=== PATIENT | female | born 1940 | race Two or more races ===

== ENCOUNTER 2018-04-08 23:02 | Inpatient (IN) | payer MEDICARE, OTHER ==
[~2018-04-08] VITALS: Ht 167.6 cm; Wt 81.2 kg
--- NOTE | 2018-04-08 23:04 | NUR ---
PT BIBRA FROM HOME COMPLAINING OF SOB X 1 DAY. PT 94% ON RA, PER RA GAVE 2L NC IMPROVED TO 96%. PT IS AAOX3. NOTED SHALLOW BREATHING AND WHEEZING ON INSPIRATION. SKIN WARM AND INTACT. PT PLACED IN GOWN AND ON CONTINUOUS ALLEY CLEANER.
--- NOTE | 2018-04-08 23:05 | NUR ---
MD AT BEDSIDE FOR EVALUATION
[2018-04-08] MEDS ORDERED: IPRATROPIUM NEB FS 0.5 MG/2.5 ML AMPUL.NEB NEB ONE (23:30)
[2018-04-08] MEDS ORDERED: CEFTRIAXONE 1GM BAG (ER ONLY) 50 ML IV ONE (23:30)
[2018-04-08] MEDS ORDERED: ALBUTEROL FS 2.5 MG/3 ML VIAL.NEB NEB ONE (23:30)
[2018-04-08] MEDS ORDERED: AZITHROMYCIN 250 MG TABLET PO ONE (23:30)
[2018-04-08] MEDS ORDERED: ALBUTEROL FS 2.5 MG/3 ML VIAL.NEB ONE (23:39)
[2018-04-08] MEDS ORDERED: IPRATROPIUM NEB FS 0.5 MG/2.5 ML AMPUL.NEB ONE (23:39)
--- NOTE | 2018-04-08 23:51 | NUR ---
RADIOLOGY AT BEDSIDE FOR CXR
[2018-04-09] VITALS (22 sets, daily range): BP systolic 86–155; BP diastolic 50–108
--- NOTE | 2018-04-09 | NUR ---
ULTRASOUND AT BEDSIDE
[2018-04-09 00:06] LABS: EOSINOPHILS % (AUTO) 0.9 % (0.0-6.0); HEMATOCRIT 31 % (33-45); LYMPHOCYTES % (AUTO) 8.1 % (20.0-44.0); MEAN CORPUSCULAR HGB CONC 32 g/dl (31.0-36.0); MEAN CORPUSCULAR VOLUME 93 fL (82-100); MONOCYTES # (AUTO) 0.5 /CMM (0.1-1.30); MONOCYTES % (AUTO) 3.7 % (2.0-12.0); NEUTROPHILS # (AUTO) 10.6 /CMM (1.8-8.9); NEUTROPHILS % (AUTO) 87.3 % (43.0-81.0); PLATELET COUNT (AUTO) 313 /CMM (150-450); RED BLOOD CELL COUNT(AUTO) 3.38 MIL/uL (4.0-5.2); WHITE BLOOD COUNT (AUTO) 12.1 K/uL (4.3-11.0)
[2018-04-09 00:19] LABS: CALCIUM, SERUM 9.5 mg/dL (8.5-10.1); CARBON DIOXIDE 23 mmol/L (21-32); CHLORIDE 97 mmol/L (98-107); CREATININE 1.6 mg/dL (0.6-1.3); GLUCOSE 133 mg/dL (74-106); POTASSIUM 4.3 mmol/L (3.5-5.1); SODIUM SERUM 131 mmol/L (136-145); UREA NITROGEN, BLOOD 39 mg/dL (7-18)
[2018-04-09] MEDS ORDERED: AZITHROMYCIN 250 MG TABLET ONE (00:20)
[2018-04-09] MEDS ORDERED: CEFTRIAXONE 1 G VIAL ONE (00:20)
[2018-04-09 00:26] LABS: TROPONIN I < 0.017 ng/mL (0.00-0.056)
[2018-04-09 00:31] LABS: ALANINE AMINOTRANSFERASE 24 U/L (12-78); ALBUMIN 2.8 g/dL (3.4-5.0); ALKALINE PHOSPHATASE 94 U/L (46-116); ASPARTATE AMINOTRANSFERASE 41 U/L (15-37); B-TYPE NATRIURETIC PEPTIDE 2077 PG/ML (0-125); BILIRUBIN,DIRECT 0.1 mg/dL (0.0-0.2); BILIRUBIN,TOTAL 0.4 mg/dL (0.2-1.0); TOTAL PROTEIN, SERUM 7.6 g/dL (6.4-8.2)
--- NOTE | 2018-04-09 01:15 | NUR ---
PT TACHYCARDIC, AWARE
[2018-04-09] MEDS ORDERED: DILTIAZEM HCL 25 MG IV IV ONE (01:30)
[2018-04-09] MEDS ORDERED: DILTIAZEM HCL 25 MG IV ONE ×3 (01:31→03:20)
--- NOTE | 2018-04-09 01:51 | NUR ---
PT BROUGHT FOR VQ SCAN
--- NOTE | 2018-04-09 02:56 | NUR ---
PT RETURNED FROM VQ SCAN
--- NOTE | 2018-04-09 03:14 | NUR ---
STEVEN V/Q WAS COMPLETED, TECH:RB
--- NOTE | 2018-04-09 03:21 | NUR ---
RECEIVED 1 VIAL OF CARDIZEM 25MG/5ML FROM [facility]
[2018-04-09] MEDS ORDERED: ENOXAPARIN SODIUM 60 MG/0.6 ML DISP.SYRIN SQ ONE (03:30)
[2018-04-09] MEDS ORDERED: DILTIAZEM HCL IV 125 MG in IV D5W 100 ML IV ONE (03:30)
[2018-04-09] MEDS ORDERED: ENOXAPARIN SODIUM 80 MG/0.8 ML DISP.SYRIN SQ ONE (03:33)
--- NOTE | 2018-04-09 03:49 | NUR ---
PER DR. HYLTON, VERBAL ORDERS TO HOLD CARDIZEM DRIP PER DR. AGUIRRE
[2018-04-09] MEDS ORDERED: AMIODARONE 150 MG/3 ML VIAL IV ONE ×2 (03:56→04:08)
[2018-04-09] MEDS ORDERED: AMIODARONE 150 MG in IV D5W 100 ML IV ONE (04:00)
[2018-04-09] MEDS ORDERED: AMIODARONE 900 MG in IV D5W 500 ML IV ONE (04:00)
--- NOTE | 2018-04-09 04:55 | NUR ---
ICU/RN-ADMITTED THIS 77 Y/O FEMALE FROM ER PER ACLS PROTOCOL. NURSING FOCUS: ALTERED CARDIAC TISSUE PERFUSION R/T DIAGNOSIS NEW ONSET, ATRIAL FIBRILLATION W/ RVR. PT. IS AWAKE, ALERT, NEPALI SPEAKING ONLY. EKG ATRIAL FIB W/ HR-131, bp-86/55. DENIES PAIN OR DISCOMFORT. ON AMIODARONE DRIP AT 1MG/MIN PER PH PROTOCOL. PT. IS A FULL CODE. WILL CONTINUE TO MONITOR CLOSELY PER PROTOCOL.
--- NOTE | 2018-04-09 05:03 | NUR ---
PT TRANSFERRED PER ACLS PROTOCOL
--- NOTE | 2018-04-09 05:30 | NUR ---
ICU/RN- MESSAGE LEFT FOR DR. Wilmar DENISE FOR ADMISSION ORDERS.
--- NOTE | 2018-04-09 06:22 | NUR ---
ICU/RN- NOW PT. EKG SR W/ HR-83. ON CONTINUOUS AMIODARONE DRIP PER PROTOCOL.
[2018-04-09] MEDS ORDERED: MAG HYDROX/AL HYDROX/SIMETH 30 ML UDC PO PRN (06:30)
[2018-04-09] MEDS ORDERED: ZOLPIDEM TARTRATE 5 MG TABLET PO PRN (06:30)
[2018-04-09] MEDS ORDERED: HYDROCODONE/APAP 5/325MG 1 EACH TABLET PO PRN (06:30)
[2018-04-09] MEDS ORDERED: HYDROCODONE/APAP 10/325MG 1 EA TABLET PO PRN (06:30)
[2018-04-09] MEDS ORDERED: MORPHINE SULFATE INJ 4 MG/ML DISP.SYRIN IV PRN (06:30)
[2018-04-09] MEDS ORDERED: ONDANSETRON HCL/PF 4 MG/2 ML VIAL IVP PRN (06:30)
[2018-04-09] MEDS ORDERED: MAGNESIUM HYDROXIDE 30 ML UDC PO PRN (06:30)
[2018-04-09] MEDS ORDERED: ACETAMINOPHEN 325 MG TABLET PO PRN (06:30)
[2018-04-09] MEDS ORDERED: Z GUARD REMEDY 2 OZ OINT TP PRN (06:30)
[2018-04-09] MEDS ORDERED: ESOM40CA PO (07:27)
[2018-04-09] MEDS ORDERED: CLON0.1T PO (07:27)
[2018-04-09] MEDS ORDERED: FEBU40TA PO (07:27)
[2018-04-09] MEDS ORDERED: POTA8TAB3 PO (07:27)
[2018-04-09] MEDS ORDERED: OLME20TA13 PO (07:27)
[2018-04-09] MEDS ORDERED: ALLO300T2 PO (07:27)
[2018-04-09] MEDS ORDERED: PARI1CAP3 PO (07:27)
[2018-04-09] MEDS ORDERED: FURO20TA4 PO (07:27)
[2018-04-09] MEDS ORDERED: DILT240C53 PO (07:27)
[2018-04-09] MEDS ORDERED: ALPR0.255 PO (07:27)
[2018-04-09] MEDS ORDERED: DIGO125T PO (07:27)
[2018-04-09] MEDS ORDERED: COLC0.6T67 PO (07:27)
[2018-04-09] MEDS ORDERED: AMIODARONE 900 MG in IV D5W 482 ML IV PRN (07:30)
--- NOTE | 2018-04-09 07:30 | NUR ---
USED CAR RENOVATOR NOTE: RECEIVED PATIENT IN BED, AWAKE, ALERT AND VERBALLY RESPONSIVE. RESPIRATION EVEN AND UNLABORED ON O2 2L/MIN VIA NC SATURATING 96-97%. DENIED ANY PAIN. HOB ELEVATED. BED ALARMED AND LOCKED AT ALL TIMES. BED ON LOWEST POSITION. (L) AND (R) WRIST IV LINE NOTED PATENT AND INTACT. AMIODARONE 1MG/MIN IV PER PROTOCOL INFUSING ON THE (L) WRIST. CALL LIGHT WITHIN REACH. NEEDS ANTICIPATED.
--- NOTE | 2018-04-09 07:30 | NUR ---
WEB PRESS OPERATOR HELPER OFFSET NOTE: RECEIVED PATIENT IN BED, AWAKE, ALERT AND ABLE TO EXPRESSED HIS NEEDS AND CAN MOUTH WORDS. VENT-TRACH DEPENDENT SATURATING 100%. HOB ELEVATED. CONTACT ISOLATION FOR MRSA WOUND. ON GT FEEDING OF JEVITY 1.2 @ 70ML/HR AND TOLERATING IT. NO RESIDUAL. (R) UA PICC LINE NOTED WITH 3 LUMENS AND INFUSING NS + KCL 40MEQ IV @ 75ML/HR. ON KCI MATTRESS, TURNED AND REPOSITIONED Q2HR. BED ALARMED AND LOCKED AT ALL TIMES. CALL LIGHT WITHIN REACH. NEEDS ANTICIPATED. Addendum: 04/09/18 at 2055 by KAROL LESTER RN ERROR WRONG PATIENT
[2018-04-09] MEDS: LEVOFLOXACIN 750 MG /D5W 150ML 750 MG in PREMIX 1 EA IV SCH (08:32)
[2018-04-09] MEDS ORDERED: ENOXAPARIN SODIUM 40 MG/0.4 ML DISP.SYRIN SQ SCH (09:00)
--- NOTE | 2018-04-09 10:00 | NUR ---
OCCUPATIONAL THERAPY AIDE NOTE: PATIENT STARTED FEELING ANXIOUS AND SHE VERBALIZED "I AM FEELING NERVOUS." PATIENT'S NIECE WAS PRESENT AT THE BEDSIDE. PRIMARY NURSE WAS PACIFYING THE PATIENT. PAGED ASH WILD NP RE: THE PATIENT'S ANXIETY ATTACK. BP WAS ELEVATED IN THE 150'S-180'S. AWAITING FOR RESPONSE.
--- NOTE | 2018-04-09 10:15 | NUR ---
TANK TRUCK DRIVER NOTE: PAGED DR. AGUIRRE WAS ALSO INFORMED ABOUT THE PATIENT'S CONDITION. AWAITING FOR MD'S RESPONSE. NIECE AND PRIMARY NURSE REMAINED WITH THE PATIENT.
--- NOTE | 2018-04-09 10:25 | NUR ---
DATA CONVERSION OPERATOR NOTE: RECEIVED A MESSAGE FROM DR. AGUIRRE AND ASH WILD CHAUFFEUR PRESENT AT THE BEDSIDE AT THIS TIME. PER DR. AGUIRRE, HE ORDERED A XANAX AND HYDRALAZINE FOR THE PATIENT. PER PATIENT'S DAUGHTER, ROMIE SHE DOES NOT WANT THE PATIENT TO TAKE THE XANAX AND MORPHINE. THE PATIENT'S BP WAS RECHECKED AND IT WENT DOWN TO 140/75 HR= 81. DR. AGUIRRE WAS MADE AWARE ABOUT THE DAUGHTER'S REQUEST. SO NO MEDICATION WAS ADMINISTERED TO THE PATIENT. PATIENT REMAINED CALM AND QUIET WITH HER NIECE AT THE BEDSIDE.
[2018-04-09] MEDS ORDERED: IV D5/ 0.9% NACL 1,000 ML IV PRN (10:30)
[2018-04-09 11:10] LABS: EOSINOPHILS % (AUTO) 0.5 % (0.0-6.0); HEMATOCRIT 30 % (33-45); HEMOGLOBIN 9.7 g/dL (11.5-14.8); LYMPHOCYTES # (AUTO) 1.1 /CMM (0.8-4.8); LYMPHOCYTES % (AUTO) 8.2 % (20.0-44.0); MEAN CORPUSCULAR HGB CONC 32 g/dl (31.0-36.0); MEAN CORPUSCULAR VOLUME 93 fL (82-100); MONOCYTES # (AUTO) 1.3 /CMM (0.1-1.30); MONOCYTES % (AUTO) 9.8 % (2.0-12.0); NEUTROPHILS # (AUTO) 11.1 /CMM (1.8-8.9); NEUTROPHILS % (AUTO) 81.5 % (43.0-81.0); PLATELET COUNT (AUTO) 344 /CMM (150-450); RDW COEFFICIENT OF VARIATION 14.8 (11.5-15.0); RED BLOOD CELL COUNT(AUTO) 3.23 MIL/uL (4.0-5.2); WHITE BLOOD COUNT (AUTO) 13.7 K/uL (4.3-11.0)
[2018-04-09 11:17] LABS: ALANINE AMINOTRANSFERASE 25 U/L (12-78); ALBUMIN 2.4 g/dL (3.4-5.0); ALKALINE PHOSPHATASE 91 U/L (46-116); ASPARTATE AMINOTRANSFERASE 32 U/L (15-37); BILIRUBIN,TOTAL 0.4 mg/dL (0.2-1.0); CALCIUM, SERUM 9.1 mg/dL (8.5-10.1); CARBON DIOXIDE 23 mmol/L (21-32); CHLORIDE 100 mmol/L (98-107); CREATININE 1.4 mg/dL (0.6-1.3); GLUCOSE 157 mg/dL (74-106); POTASSIUM 3.8 mmol/L (3.5-5.1); SODIUM SERUM 132 mmol/L (136-145); TOTAL PROTEIN, SERUM 6.8 g/dL (6.4-8.2); UREA NITROGEN, BLOOD 30 mg/dL (7-18)
--- NOTE | 2018-04-09 12:14 | NUR ---
INSURANCE SALES EXECUTIVE NOTE: DR. AGUIRRE WAS PRESENT AT THE BEDSIDE. INTERVIEWED THE PATIENT AND HE SAID THAT HE WILL DC THE IV FLUID AND ORDERED LASIX AND A STAT CHEST X-RAY WILL BE DONE. THE CT CHEST WITHOUT CONTRAST PER MD WILL BE DONE IN 2 HR. PATIENT AND NIECE AT THE BEDSIDE WAS AWARE AND AGREEABLE TO THE PLAN.
[2018-04-09] MEDS ORDERED: FUROSEMIDE 20 MG/2 ML VIAL IV ONE (12:30)
[2018-04-09] MEDS: DILTIAZEM HCL CD 120 MG PO SCH (13:26)
[2018-04-09] MEDS ORDERED: LEVALBUTEROL HCL NEB 1.25 MG/0.5 ML VIAL.NEB NEB ONE (13:30)
--- NOTE | 2018-04-09 15:00 | NUR ---
HOSPITAL CLERK NOTE: PATIENT WAS BROUGHT TO CT SCAN ACCOMPANIED BY THE PRIMARY NURSE AND 2 RADIOLOGY TECHNICIANS VIA BED WITH MONITOR AND O2 2L/MIN VIA NC. REMAINED ON STABLE CONDITION.
--- NOTE | 2018-04-09 15:23 | NUR ---
PARACHUTE SUPERVISOR NOTE: PATIENT WAS BROUGHT BACK TO ROOM 256 ON STABLE CONDITION. REMAINED ON O2 2L/MIN VIA NC SATURATING 95%. NOT ON ANY FORM OF DISTRESS. CONNECTED BACK TO THE BEDSIDE MONITOR.
--- NOTE | 2018-04-09 19:30 | NUR ---
APPLICATIONS PROJECT MANAGER NOTE: PATIENT ON STABLE CONDITION. REPORT GIVEN TO PM SHIFT NURSE FOR CONTINUITY OF CARE. PATIENT WAS ABLE TO SEAT ON THE BEDSIDE COMMODE AND WAS ALERT TO CONTROL HER BLADDER AND BOWEL. PATIENT REMAINED ON AMIODARONE 0.5MG/MIN IV PER PROTOCOL.
--- NOTE | 2018-04-09 19:30 | NUR ---
WARP KNITTING MACHINE OPERATOR INITIAL NOTE RECEIVED PATIENT AWAKE A/OX3, ABLE TO MAKE NEEDS KNOWN. DENIES PAIN OR DISCOMFORT. ASSISTED TO BEDSIDE COMMODE, WITH SOB ON EXERTION NOTED, SPO2 100% ON 2LPMO2 VIA NC. SKIN WARM AND DRY TO TOUCH. ON TELE MONITOR SR 83. WITH RW PERIPHERAL LINE PATENT AND INTACT WITH AMIO GTT AT 0.5MG/MIN. NOTED WITH BLE NON-PITTING EDEMA. HOB ELEVATED. SIDE RAILS UP AND LOCKED. BED KEPT AT LOWEST POSITION. CALL LIGHT KEPT WITHIN EASY REACH. WILL CONTINUE TO MONITOR.
[2018-04-09] MEDS: ENOXAPARIN SODIUM 80 MG/0.8 ML DISP.SYRIN SQ SCH (20:45)
--- NOTE | 2018-04-09 23:15 | NUR ---
CONCRETE BATCHING PLANT OPERATOR NOTE DAUGHTER AT BEDSIDE, GAVE UPDATES ON HER MOTHER.
[2018-04-10] VITALS (32 sets, daily range): BP systolic 92–187; BP diastolic 48–131
--- NOTE | 2018-04-10 03:45 | NUR ---
KILN HAND NOTE 0345: PATIENT CONVERTED TO AFIB 130'S-150'S, NO C/O PAIN OR DISCOMFORT. ON AMIO GTT AT 0.5MG/MIN. BP 150/103. NO SOB NOTED. 0404: JUAN PABLO DARBY PAGED 0420: JUAN PABLO DARBY REPAGED [phone]: RECEIVED CALL BACK FROM JUAN PABLO DARBY WITH NEW ORDERS RECEIVED CARDIZEM 10 IVP ONE TIME. NOTED AND WILL CARRY OUT.
[2018-04-10] MEDS ORDERED: DILTIAZEM HCL 50 MG IV IVP ONE (05:00)
[2018-04-10] MEDS ORDERED: DILTIAZEM HCL 25 MG IV ONE (05:07)
[2018-04-10 05:15] LABS: EOSINOPHILS % (AUTO) 1.1 % (0.0-6.0); HEMATOCRIT 31 % (33-45); HEMOGLOBIN 10.1 g/dL (11.5-14.8); LYMPHOCYTES # (AUTO) 1.3 /CMM (0.8-4.8); LYMPHOCYTES % (AUTO) 12.2 % (20.0-44.0); MEAN CORPUSCULAR HGB CONC 32 g/dl (31.0-36.0); MEAN CORPUSCULAR VOLUME 93 fL (82-100); MONOCYTES # (AUTO) 0.9 /CMM (0.1-1.30); MONOCYTES % (AUTO) 8.1 % (2.0-12.0); NEUTROPHILS # (AUTO) 8.7 /CMM (1.8-8.9); NEUTROPHILS % (AUTO) 78.6 % (43.0-81.0); PLATELET COUNT (AUTO) 371 /CMM (150-450); RDW COEFFICIENT OF VARIATION 14.9 (11.5-15.0); RED BLOOD CELL COUNT(AUTO) 3.37 MIL/uL (4.0-5.2); WHITE BLOOD COUNT (AUTO) 11.1 K/uL (4.3-11.0)
[2018-04-10 05:41] LABS: CALCIUM, SERUM 9.3 mg/dL (8.5-10.1); CARBON DIOXIDE 25 mmol/L (21-32); CHLORIDE 99 mmol/L (98-107); CREATININE 1.4 mg/dL (0.6-1.3); GLUCOSE 116 mg/dL (74-106); MAGNESIUM 1.5 mg/dL (1.8-2.4); PHOSPHORUS 3.5 mg/dL (2.5-4.9); POTASSIUM 3.8 mmol/L (3.5-5.1); SODIUM SERUM 135 mmol/L (136-145); UREA NITROGEN, BLOOD 27 mg/dL (7-18)
[2018-04-10 05:43] LABS: CHOLESTEROL 118 mg/dL (<200); HDL CHOLESTEROL 44 mg/dL (40-60); LDL 58 mg/dL (0-99); THYROID STIMULATING HORMONE 2.195 uIU/mL (0.358-3.74); TRIGLYCERIDES 94 mg/dL (30-150)
--- NOTE | 2018-04-10 07:22 | NUR ---
DISH NETWORK INSTALLER NOTE RELAYED TO DR. AGUIRRE REGARDING PATIENT CONVERTED TO AFIB 130-150 AT 0345, PATIENT S/P AMIO GTT 0430 THIS MORNING AND CARDIZEM 10MG IVP GIVEN ONCE, WITH NO CHANGE. PATIENT NO C/O PAIN. BP 154/65. WITH ORDERS TO RESTART AMIO DRIP WITH A BOLUS, AND INCREASE MORNING CARDIZEM TO 240MG PO DAILY INSTEAD OF 120 AND GIVE TO HER NOW. NOTED. INFORMED AM NURSE.
--- NOTE | 2018-04-10 07:43 | NUR ---
WIRE LOOP MACHINE OPERATOR CSLOING NOTE ALL DUE MEDS GIVEN. SLEPT WELL THROUGH THE NIGHT. ALL DUE MEDS GIVEN. NO RESPIRATORY DISTRESS NOTED, ON 2LPMO2 VIA NC. ASSISTED TO BEDSIDE COMMODE NEEDED. KEPT CLEAN AND DRY. AFIB ON MONITOR. SIDE RAILS UP AND LOCKED. BED KEPT AT LOWEST POSITION. CALL LIGHT KEPT WITHIN EASY REACH. CONTINUITY OF CARE ENDORSED TO AM NURSE.
[2018-04-10] MEDS ORDERED: AMIODARONE 150 MG in IV D5W 100 ML IV ONE (08:00)
[2018-04-10] MEDS: LEVOFLOXACIN 750 MG /D5W 150ML 750 MG in PREMIX 1 EA IV SCH (08:05)
[2018-04-10] MEDS: ENOXAPARIN SODIUM 80 MG/0.8 ML DISP.SYRIN SQ SCH (08:06)
[2018-04-10] MEDS ORDERED: DILTIAZEM HCL CD 240 MG PO SCH ×2 (08:30→09:00)
[2018-04-10] MEDS: AMIODARONE 900 MG in IV D5W 482 ML IV PRN (09:12)
[2018-04-10] MEDS: Magnesium 1GM/D5W 100ML PREMIX 100 ML IV SCH ×3 (09:47→12:25)
[2018-04-10] MEDS: FUROSEMIDE 40 MG/4 ML VIAL IV SCH ×2 (09:48→17:32)
[2018-04-10] MEDS ORDERED: DILTIAZEM HCL 25 MG IV IV ONE ×2 (10:00→11:30)
[2018-04-10] MEDS: ACETYLCYSTEINE 10% SOLN 400 MG/4 ML VIAL NEB SCH ×3 (10:00→23:23)
[2018-04-10] MEDS ORDERED: POTASSIUM CHLORIDE 20 MEQ POWDER PACKET PO ONE (10:00)
[2018-04-10] MEDS: IPRATROPIUM NEB FS 0.5 MG/2.5 ML AMPUL.NEB NEB SCH ×3 (10:00→20:01)
[2018-04-10] MEDS ORDERED: DILTIAZEM HCL CD 240 MG PO ONE (11:30)
[2018-04-10] MEDS: DILTIAZEM HCL CD 120 MG PO SCH (11:54)
[2018-04-10] MEDS ORDERED: DILTIAZEM HCL CD 120 MG PO ONE (12:00)
--- NOTE | 2018-04-10 12:37 | NUR ---
Given cardizem 120mg PO as ordered at 1154. Theres a duplicate order on AUG due at 1200,
[2018-04-10] MEDS: RIVAROXABAN 15 MG TABLET PO SCH (17:33)
[2018-04-10] MEDS ORDERED: FEE PK DOSING 1 MIN EA MC ONE (17:35)
[2018-04-10] MEDS: VANCOMYCIN 500 MG in IV D5W 100 ML IV SCH (18:37)
--- NOTE | 2018-04-10 19:30 | NUR ---
SEED CORN MANAGER PRODUCTION INITIAL NOTE RECEIVED PATIENT AWAKE A/OX3, ABLE TO MAKE NEEDS KNOWN. DAUGHTER AT BEDSIDE. DENIES PAIN OR DISCOMFORT. NO RESPIRATORY DISTRESS NOTED, ON 2LPMO2 VIA NC. SKIN WARM AND DRY TO TOUCH. ON TELE MONITOR AFIB UNCONTROLLED. WITH RFA PERIPHERAL LINE PATENT AND INTACT WITH AMIO GTT AT 0.5MG/MIN. NOTED WITH BLE NON-PITTING EDEMA. HOB ELEVATED. SIDE RAILS UP AND LOCKED. BED KEPT AT LOWEST POSITION. CALL LIGHT KEPT WITHIN EASY REACH. WILL CONTINUE TO MONITOR.
[2018-04-10] MEDS: CEFEPIME 1 GM in IV D5W 50 ML IV SCH (22:02)
[2018-04-11] VITALS (24 sets, daily range): BP systolic 111–178; BP diastolic 44–101
[2018-04-11] MEDS: IPRATROPIUM NEB FS 0.5 MG/2.5 ML AMPUL.NEB NEB SCH ×4 (01:06→19:37)
[2018-04-11 04:59] LABS: BASOPHILS # (AUTO) 0.1 /CMM (0.0-0.2); BASOPHILS % (AUTO) 0.4 % (0.0-2.0); EOSINOPHILS % (AUTO) 0.6 % (0.0-6.0); HEMATOCRIT 35 % (33-45); HEMOGLOBIN 11.1 g/dL (11.5-14.8); LYMPHOCYTES # (AUTO) 1.5 /CMM (0.8-4.8); LYMPHOCYTES % (AUTO) 12.5 % (20.0-44.0); MEAN CORPUSCULAR HGB CONC 32 g/dl (31.0-36.0); MEAN CORPUSCULAR VOLUME 93 fL (82-100); MONOCYTES # (AUTO) 1.1 /CMM (0.1-1.30); MONOCYTES % (AUTO) 8.9 % (2.0-12.0); NEUTROPHILS # (AUTO) 9.3 /CMM (1.8-8.9); NEUTROPHILS % (AUTO) 77.6 % (43.0-81.0); PLATELET COUNT (AUTO) 424 /CMM (150-450); RDW COEFFICIENT OF VARIATION 14.4 (11.5-15.0); RED BLOOD CELL COUNT(AUTO) 3.73 MIL/uL (4.0-5.2); WHITE BLOOD COUNT (AUTO) 11.9 K/uL (4.3-11.0)
[2018-04-11 05:32] LABS: CALCIUM, SERUM 9.7 mg/dL (8.5-10.1); CARBON DIOXIDE 30 mmol/L (21-32); CHLORIDE 98 mmol/L (98-107); CREATININE 1.5 mg/dL (0.6-1.3); GLUCOSE 131 mg/dL (74-106); MAGNESIUM 1.9 mg/dL (1.8-2.4); PHOSPHORUS 3.5 mg/dL (2.5-4.9); POTASSIUM 3.4 mmol/L (3.5-5.1); SODIUM SERUM 138 mmol/L (136-145); UREA NITROGEN, BLOOD 27 mg/dL (7-18)
[2018-04-11] MEDS: VANCOMYCIN 500 MG in IV D5W 100 ML IV SCH ×2 (05:42→17:26)
--- NOTE | 2018-04-11 07:30 | NUR ---
COPY MANAGER CLOSING NOTE ALL DUE MEDS GIVEN. NO RESPIRATORY DISTRESS NOTED, ON 2LPMO2 VIA NC. ASSISTED TO BED HUNT NEEDED. KEPT CLEAN AND DRY. AFIB UNCONTROLLED ON MONITOR. AMIO GTT RUNNING AT 0.5 MG/MIN. SIDE RAILS UP AND LOCKED. BED KEPT AT LOWEST POSITION. CALL LIGHT KEPT WITHIN EASY REACH. CONTINUITY OF CARE ENDORSED TO AM NURSE.
--- NOTE | 2018-04-11 07:30 | NUR ---
LUMBER TALLIER AM NOTES RECEIVED PATIENT AWAKE A/OX3, NEPALI SPEAKING, ABLE TO MAKE NEEDS KNOWN. C/O STIFFNESS/PAIN TO BOTH LOWER LEGS 10/02, REFUSE PAIN MEDS, NO RESPIRATORY DISTRESS NOTED, ON 2LPMO2 VIA NC. AFIB UNCONTROLLED UNCONTROLLED HR 140S-150S ON MONITOR. RFA G20 PERIPHERAL LINE PATENT AND INTACT WITH AMIO GTT AT 0.5MG/MIN. RT WRIST G20 FLUSHES WELL, BOTH SITES CLEAR, NOTED WITH BLE NON-PITTING EDEMA. HOB ELEVATED. SIDE RAILS UP AND LOCKED. BED KEPT AT LOWEST POSITION. CALL LIGHT KEPT WITHIN EASY REACH. WILL CONTINUE TO MONITOR.
[2018-04-11] MEDS: ACETYLCYSTEINE 10% SOLN 400 MG/4 ML VIAL NEB SCH ×2 (07:34→15:30)
[2018-04-11] MEDS ORDERED: LEVOFLOXACIN 750 MG /D5W 150ML 750 MG in PREMIX 1 EA IV SCH (08:00)
[2018-04-11] MEDS ORDERED: POTASSIUM CHLORIDE 20 MEQ POWDER PACKET PO ONE (09:00)
[2018-04-11] MEDS ORDERED: DILTIAZEM HCL CD 240 MG PO SCH (09:00)
[2018-04-11] MEDS: DILTIAZEM HCL CD 180 MG PO SCH (09:02)
[2018-04-11] MEDS: CEFEPIME 1 GM in IV D5W 50 ML IV SCH ×2 (09:03→21:00)
[2018-04-11] MEDS: AMIODARONE 900 MG in IV D5W 482 ML IV PRN (09:04)
--- NOTE | 2018-04-11 09:30 | NUR ---
WEAVING MACHINE OPERATOR NOTE PER DR. AGUIRRE, WILL CONTINUE AMIO DRIP FOR ANOTHER 24 HOURS. PT ALSO HAS PO CARDIZEM. DUE MEDS GIVEN
[2018-04-11] MEDS: FUROSEMIDE 40 MG TABLET PO SCH (10:54)
[2018-04-11] MEDS: COLCHICINE 0.6 MG TABLET PO SCH (12:15)
--- NOTE | 2018-04-11 13:01 | NUR ---
PT REFUSED RESP TX AT THIS TIME. NO S/S OF SOB NOTED. WILL CONT TO MONITOR Addendum: 04/11/18 at 1303 by SHAYLA CHRISTIANSEN RT Amended: Links added.
[2018-04-11] MEDS: RIVAROXABAN 15 MG TABLET PO SCH (17:26)
[2018-04-11] MEDS: FLUTICASONE PROPIONATE 16 GM BOTTLE NS SCH (18:30)
--- NOTE | 2018-04-11 18:32 | NUR ---
DIRECTOR REGULATORY COMPLIANCE CLOSING NOTES PATIENT RESTING IN BED, FAMILY AT BEDSIDE. AWAKE A/OX3, BELARUSIAN SPEAKING, ABLE TO MAKE NEEDS KNOWN. C/O STIFFNESS/PAIN TO BOTH LOWER LEGS 10/02, FAMILY REFUSE PAIN MEDS, NO RESPIRATORY DISTRESS NOTED, ON 2LPMO2 VIA NC. SR HR 80S - 90S. DENIES CHEST DISCOMFORT. RFA G20 PERIPHERAL LINE PATENT AND INTACT WITH AMIO GTT AT 0.5MG/MIN. LEFT FA G22 FLUSHES WELL, BOTH SITES CLEAR, NOTED WITH BLE NON-PITTING EDEMA. HOB ELEVATED. SIDE RAILS UP AND LOCKED. BED KEPT AT LOWEST POSITION. CALL LIGHT KEPT WITHIN EASY REACH. ALL NEEDS MET AT THIS TIME. WILL ENDORSE TO NEXT SHIFT FOR GENA.
--- NOTE | 2018-04-11 20:00 | NUR ---
Received patient awake alert and oriented x 3.Dany speaking with family at bedside as registered dental hygienist.VS stable.O2 2L NC on denies chest pain or sob.SR per monitor with Amiodarone gtt infusing at 0.5 mg/min to RFA site intact.Turned and repositioned.Patient complaints of pain to right leg when moved.Offers pain medication but family refused.Bilateral LE edema noted and kept elevated on pillows.Safety precaution maintained with call light within reach.Bed low and bed exit alarm on.Continue monitoring.
[2018-04-12] VITALS (24 sets, daily range): BP systolic 125–162; BP diastolic 50–114
--- NOTE | 2018-04-12 | NUR ---
Patient verbalized she is hungry offered snack.Voiding well per bedpan .Kept clean and dry.Turned and repositioned.
[2018-04-12] MEDS: ACETYLCYSTEINE 10% SOLN 400 MG/4 ML VIAL NEB SCH ×3 (00:32→15:14)
[2018-04-12] MEDS: IPRATROPIUM NEB FS 0.5 MG/2.5 ML AMPUL.NEB NEB SCH ×4 (00:32→19:44)
--- NOTE | 2018-04-12 04:00 | NUR ---
Patient awake.Bed bath rendered and complete linens changed.Turned and repositioned. Patient verbalized comfort.VS remains stable.
[2018-04-12 05:34] LABS: BASOPHILS % (AUTO) 0.3 % (0.0-2.0); EOSINOPHILS % (AUTO) 0.2 % (0.0-6.0); HEMATOCRIT 32 % (33-45); HEMOGLOBIN 10.3 g/dL (11.5-14.8); LYMPHOCYTES % (AUTO) 8.5 % (20.0-44.0); MEAN CORPUSCULAR HGB CONC 33 g/dl (31.0-36.0); MEAN CORPUSCULAR VOLUME 92 fL (82-100); MONOCYTES % (AUTO) 8.7 % (2.0-12.0); NEUTROPHILS # (AUTO) 9.3 /CMM (1.8-8.9); NEUTROPHILS % (AUTO) 82.3 % (43.0-81.0); PLATELET COUNT (AUTO) 407 /CMM (150-450); RED BLOOD CELL COUNT(AUTO) 3.44 MIL/uL (4.0-5.2); WHITE BLOOD COUNT (AUTO) 11.3 K/uL (4.3-11.0)
[2018-04-12 05:45] LABS: CALCIUM, SERUM 8.8 mg/dL (8.5-10.1); CARBON DIOXIDE 29 mmol/L (21-32); CHLORIDE 98 mmol/L (98-107); CREATININE 1.2 mg/dL (0.6-1.3); GLUCOSE 138 mg/dL (74-106); MAGNESIUM 1.6 mg/dL (1.8-2.4); POTASSIUM 3.6 mmol/L (3.5-5.1); SODIUM SERUM 135 mmol/L (136-145); UREA NITROGEN, BLOOD 19 mg/dL (7-18)
--- NOTE | 2018-04-12 07:10 | NUR ---
RN INITIAL NOTES RECEIVED PT AWAKE, A/OX3. ON 02 AT 2LPM VIA NC. NO RESPIRATORY DISTRESS NOTED. NO SOB NOTED. DENIES ANY PAIN. ON AMIO DRIP AT 0.5MG/MIN. PT SINUS RHYTHM ON MONITOR, 70S. IV LINES IN PLACE. PT COMFORTABLE. PT CLEAN AND DRY. CALL LIGHT WITHIN REACH.
--- NOTE | 2018-04-12 08:07 | NUR ---
PT REFUSED RESP TX AT THIS TIME. NO S/S OF SOB NOTED. WILL CONT TO MONITOR Addendum: 04/12/18 at 0808 by SHAYLA CHRISTIANSEN RT Amended: Links added.
[2018-04-12] MEDS: FLUTICASONE PROPIONATE 16 GM BOTTLE NS SCH ×2 (08:28→16:36)
[2018-04-12] MEDS: CEFEPIME 1 GM in IV D5W 50 ML IV SCH ×2 (08:28→20:45)
[2018-04-12] MEDS: FUROSEMIDE 40 MG TABLET PO SCH (08:28)
[2018-04-12] MEDS: COLCHICINE 0.6 MG TABLET PO SCH (08:28)
[2018-04-12] MEDS: DILTIAZEM HCL CD 180 MG PO SCH (08:29)
[2018-04-12] MEDS ORDERED: POTASSIUM CHLORIDE 20 MEQ POWDER PACKET PO ONE (09:00)
[2018-04-12] MEDS: Magnesium 1GM/D5W 100ML PREMIX 100 ML IV SCH ×2 (09:12→10:16)
[2018-04-12] MEDS: AMIODARONE HCL 200 MG TABLET PO SCH ×2 (09:45→20:41)
--- NOTE | 2018-04-12 09:45 | NUR ---
RN NOTES SEEN AND EXAMINED BY DR AGUIRRE. AWARE OF CURRENT LAB VALUES NAD CXR RESULT. SHAYY MAXWELL DC'D AND CHANGED TO PO. SINUS RHYTHM ON THE MONITOR. OK TO DOWNGRADE. WILL MONITOR
--- NOTE | 2018-04-12 13:30 | NUR ---
RN NOTES SEEN AND EXAMINED BY HOWARD WALLS NP. AWARE OF LAB VALUES: WBC 11.3, HGB 10.3, HCT 32, PLATELET 407. POTASSIUM 3.6, REPLACED WITH KCL 40MEQ, MAGNESIUM 1.6, REPLACED WITH 2GMS. ALSO AWARE OF LATEST CXR RESULT. ORDERED CAROTID DULEX, MRI WO CONTRAST CSPINE AND LSPINE. WILL CLOSELY MONITOR
--- NOTE | 2018-04-12 14:27 | NUR ---
TEXTED DR. MILLER FOR MRI APPROVAL AT 12.58 PM. NOT APPROVED YET.
[2018-04-12] MEDS: RIVAROXABAN 15 MG TABLET PO SCH (16:37)
--- NOTE | 2018-04-12 17:45 | NUR ---
TELE/RN NOTE PATIENT IS ALERT AND ORIENTED X3. DENIES SOB. RESPIRATION REGULAR AND UNLABORED. DENIES PAIN. PATIENT ON TELE BOX AND READING SR. PATIENT IN STABLE CONDITION. BED LOW AND LOCKED. SIDE RAILS UP X3. CALL LIGHT WITHIN REACH. WILL CONTINUE TO MONITOR.
--- NOTE | 2018-04-12 17:50 | NUR ---
RN NOTES PT TRANSFERRED TO ROOM 106. PT REMAINS A/0X3. NO RESPIRATORY DISTRESS NOTED. NO SOB NOTED. DENIES ANY PAIN. HOB ELEVATED. PT COMFORTABLE. TRANSFERRED IN STABLE CONDITION. ROXANNA FITZGERALD TOOK OVER PT'S CARE.
--- NOTE | 2018-04-12 19:30 | NUR ---
FIELD COIL WINDER NOTES: RECEIVED PT ON BED ALERT AND AWAKE, FARSI SPEAKING. FAMILY AT BEDSIDE. NO ACUTE DISTRESS NOTED. NO COMPLAINTS OF PAIN OR DISCOMFORT AT THIS TIME. NO SOB NOTED. ON TELE MONITOR HR 81BPM. KEPT CLEAN, DRY AND COMFORTABLE. CALL LIGHT PLACED WITHIN REACH. SAFETY AND FALL PRECAUTIONS OBSERVED AND MAINTAINED. WILL CONTINUE TO MONITOR PT.
[2018-04-13] VITALS (7 sets, daily range): BP systolic 130–154; BP diastolic 52–69
[2018-04-13] MEDS: ACETYLCYSTEINE 10% SOLN 400 MG/4 ML VIAL NEB SCH ×4 (00:43→23:30)
[2018-04-13] MEDS: IPRATROPIUM NEB FS 0.5 MG/2.5 ML AMPUL.NEB NEB SCH ×5 (00:43→20:46)
--- NOTE | 2018-04-13 06:27 | NUR ---
OCCUPATIONAL HEALTH AND SAFETY MANAGER NOTES: NO CHANGES NOTED THROUGHOUT THE SHIFT. NO ACUTE DISTRESS NOTED. DENIES PAIN AND DISCOMFORT AT THIS TIME. ON 2LPM NASAL CANNULA, NO SOB NOTED. SINUS RHYTHM ON TELE MONITOR HR 73BPM. ALL DUE MEDS GIVEN ORDERED, WELL TOLERATED. CALL LIGHT PLACED WITHIN REACH. KEPT CLEAN, DRY AND COMFORTABLE. SIDE RAILS UP X3. BED ALARM ON. BED LOCKED AND IN LOWEST POSITION. WILL ENDORSE TO DAY SHIFT RN FOR CONTINUITY OF CARE.
[2018-04-13 07:24] LABS: CALCIUM, SERUM 8.7 mg/dL (8.5-10.1); CARBON DIOXIDE 29 mmol/L (21-32); CHLORIDE 99 mmol/L (98-107); CREATININE 1.4 mg/dL (0.6-1.3); GLUCOSE 93 mg/dL (74-106); POTASSIUM 3.4 mmol/L (3.5-5.1); SODIUM SERUM 139 mmol/L (136-145); UREA NITROGEN, BLOOD 26 mg/dL (7-18)
--- NOTE | 2018-04-13 08:40 | NUR ---
PAUL HOLLINGSWORTH TEXTED ,ON HOLD FOR NOW ,HE WILL LET US KNOW.
--- NOTE | 2018-04-13 08:42 | NUR ---
MRI ON HOLD FOR NOW, DR. MILLER WILL LET US KNOW.
[2018-04-13] MEDS: FUROSEMIDE 40 MG TABLET PO SCH (08:44)
[2018-04-13] MEDS: COLCHICINE 0.6 MG TABLET PO SCH (08:44)
[2018-04-13] MEDS: DILTIAZEM HCL CD 180 MG PO SCH (08:44)
[2018-04-13] MEDS: AMIODARONE HCL 200 MG TABLET PO SCH ×2 (08:44→21:02)
--- NOTE | 2018-04-13 08:45 | NUR ---
PRESS WASHER INITIAL NOTES Patient is sitting up in bed, awake, had breakfast with good appetite. Tele monitor showing AFIB HR130's, patient denies any pain, no c/o N/V, denies headache. JUAN PABLO Miller informed, Ekg done. Dr. Julian will see the patient. Maintain safety precaution.
[2018-04-13] MEDS: FLUTICASONE PROPIONATE 16 GM BOTTLE NS SCH ×2 (08:49→16:51)
[2018-04-13] MEDS ORDERED: POTASSIUM CHLORIDE 20 MEQ TAB.PRT.SR PO SCH (09:00)
[2018-04-13] MEDS ORDERED: AMIODARONE 150 MG in IV D5W 100 ML IV ONE (10:00)
[2018-04-13] MEDS ORDERED: POTASSIUM CHLORIDE 20 MEQ TAB.PRT.SR PO ONE (10:00)
[2018-04-13] MEDS: CEFEPIME 1 GM in IV D5W 50 ML IV SCH ×2 (10:17→20:59)
[2018-04-13] MEDS: METOPROLOL TARTRATE 50 MG TABLET PO SCH ×2 (10:25→21:02)
--- NOTE | 2018-04-13 11:06 | NUR ---
iv bolus amiodarone given as ordered,will continue to monitor.
--- NOTE | 2018-04-13 11:21 | NUR ---
IV bolus Amiodarone given, HR 100 in the tele monitor. BP 113/72. Patient denies shortness of breath, no chest pain.
--- NOTE | 2018-04-13 16:48 | NUR ---
Per patient she is taking medication nexium at home, medication non formulary and family unable to bring medication at this time, agreed on Protonix. Informed JUAN PABLO Miller, will start on protonix ACB.
[2018-04-13] MEDS: RIVAROXABAN 15 MG TABLET PO SCH (16:53)
--- NOTE | 2018-04-13 18:38 | NUR ---
APARTMENT ASSISTANT MANAGER CLOSING NOTES Patient maintained Sinus rhythm HR 80'2 on the Tele monitor, ambulates with assist one person/walker. Continued on IV antibiotic per ID, afebrile during the shift, denies any pain. Potassium supplemented today. On low flow oxygen, tolerating well. Xray chest tomorrow. MRI done pending result. Will endorse to oncoming RN.
--- NOTE | 2018-04-13 20:00 | NUR ---
RN NOTES RECEIVED PATIENT IN BED, ALERT AND ORIENTED X3, PERSIAN SPEAKING ONLY, NO SOB, ON 2LPM VIA NC, NO COMPLAIN OF PAIN, PER TELE MONITOR, NSR. EATING DINNER, DAUGHTER AT THE BEDSIDE. WILL CONTINUE TO MONITOR.
[2018-04-14] VITALS (8 sets, daily range): BP systolic 133–150; BP diastolic 43–68
[2018-04-14] MEDS: IPRATROPIUM NEB FS 0.5 MG/2.5 ML AMPUL.NEB NEB SCH ×4 (01:56→19:08)
[2018-04-14 06:36] LABS: BASOPHILS % (AUTO) 0.5 % (0.0-2.0); HEMATOCRIT 33 % (33-45); HEMOGLOBIN 10.7 g/dL (11.5-14.8); LYMPHOCYTES # (AUTO) 1.7 /CMM (0.8-4.8); LYMPHOCYTES % (AUTO) 16.2 % (20.0-44.0); MEAN CORPUSCULAR HGB CONC 33 g/dl (31.0-36.0); MEAN CORPUSCULAR VOLUME 93 fL (82-100); MONOCYTES # (AUTO) 0.8 /CMM (0.1-1.30); MONOCYTES % (AUTO) 7.9 % (2.0-12.0); NEUTROPHILS # (AUTO) 7.8 /CMM (1.8-8.9); NEUTROPHILS % (AUTO) 72.4 % (43.0-81.0); RED BLOOD CELL COUNT(AUTO) 3.53 MIL/uL (4.0-5.2); WHITE BLOOD COUNT (AUTO) 10.7 K/uL (4.3-11.0)
[2018-04-14 06:51] LABS: PLATELET COUNT (AUTO) 463 /CMM (150-450)
--- NOTE | 2018-04-14 06:53 | NUR ---
RN NOTES PATIENT IS ALERT AND AWAKE, NO SOB, NO DISTRESS, NSR IN MONITOR, NO COMPLAIN OF PAIN. PER MD, CONTINUE TELEMETRY, CONTINUE ANTICOAGULATION AND AVOID NEPHROTOXIC DRUGS
[2018-04-14 07:05] LABS: CALCIUM, SERUM 8.9 mg/dL (8.5-10.1); CARBON DIOXIDE 30 mmol/L (21-32); CHLORIDE 101 mmol/L (98-107); CREATININE 1.4 mg/dL (0.6-1.3); GLUCOSE 96 mg/dL (74-106); MAGNESIUM 1.7 mg/dL (1.8-2.4); PHOSPHORUS 3.4 mg/dL (2.5-4.9); POTASSIUM 3.6 mmol/L (3.5-5.1); SODIUM SERUM 142 mmol/L (136-145); UREA NITROGEN, BLOOD 29 mg/dL (7-18)
--- NOTE | 2018-04-14 07:30 | NUR ---
RN OPENING NOTES RECEIVED PATIENT IN BED, ALERT AND ORIENTED X3, BENINESE SPEAKING ONLY. NO ACUTE DISTRESS, NO SOB, ON 2LPM VIA NC, SPO2 96%. NO COMPLAINTS OF PAIN OR DISCOMFORT. SINUS RHYTHM HR 73 ON TELEMONIOTR. IV SITE INTACT AND PATENT. KEPT PATIENT SAFE AND COMFORTABLE. BED IN LOW/LOCKD POSITION, SIDERAILS UPX2, CALL LIGHT IN REACH. WILL CONTINUE TO MONIOTR ACCORDINGLY.
[2018-04-14] MEDS: ACETYLCYSTEINE 10% SOLN 400 MG/4 ML VIAL NEB SCH ×3 (07:39→23:53)
[2018-04-14] MEDS: FLUTICASONE PROPIONATE 16 GM BOTTLE NS SCH ×2 (08:32→17:53)
[2018-04-14] MEDS: COLCHICINE 0.6 MG TABLET PO SCH (08:33)
[2018-04-14] MEDS: PANTOPRAZOLE 40 MG TABLET.DR PO SCH (08:33)
[2018-04-14] MEDS: DILTIAZEM HCL CD 180 MG PO SCH (08:36)
[2018-04-14] MEDS: METOPROLOL TARTRATE 50 MG TABLET PO SCH ×2 (08:36→21:06)
[2018-04-14] MEDS: FUROSEMIDE 40 MG TABLET PO SCH (08:36)
[2018-04-14] MEDS: AMIODARONE HCL 200 MG TABLET PO SCH ×2 (08:36→21:06)
[2018-04-14] MEDS ORDERED: POTASSIUM CHLORIDE 20 MEQ POWDER PACKET PO ONE (09:00)
[2018-04-14] MEDS: CEFEPIME 1 GM in IV D5W 50 ML IV SCH ×2 (09:17→21:05)
[2018-04-14] MEDS ORDERED: BISACODYL SUPP (10 MG) 10 MG/SUPP.RECT SUPP.RECT RC ONE (09:30)
[2018-04-14] MEDS: Magnesium 1GM/D5W 100ML PREMIX 100 ML IV SCH ×2 (10:50→12:34)
[2018-04-14] MEDS: PHENYLEPHRINE/SHK LV/MO/PET,WH 30 GM TUBE RC PRN ×2 (11:18→17:54)
[2018-04-14] MEDS ORDERED: NA PHOS,M-B/NA PHOS,DI-BA 1 EA ENEMA RC PRN (13:30)
[2018-04-14] MEDS: RIVAROXABAN 15 MG TABLET PO SCH (17:50)
[2018-04-14] MEDS: DOCUSATE SODIUM 100 MG CAPSULE PO SCH (17:51)
--- NOTE | 2018-04-14 18:03 | NUR ---
LIA NOTES: BM HAD A BM. BROWN SMALL SOFT STOOLS Addendum: 04/14/18 at 0 by ANISHA BOYLE HAD ANOTHER BM IN THE RESTROOM. MEDIUM, HARD, FORMED, BROWN STOOLS
--- NOTE | 2018-04-14 19:36 | NUR ---
RN CLOSING NOTES PATIENT IN STABLE CONDITION. DAUGHTER AT BEDSIDE. ALL NEEDS ATTENDED AND PROVIDED. ALL DUE MEDICATIONS GIVEN ORDERED. KEPT PATIENT SAFE AND COMFORTABLE. BED IN LOW/LOCKED POSITION, SIDERAILS UPX2, CALL LIGHT IN REACH. ENDORSED TO NIGHT RN FOR GENA.
--- NOTE | 2018-04-14 20:10 | NUR ---
MANAGER COSMETICS NOTES RECEIVED REPORT FROM AM RN. PATIENT A/A/O X3, MOSTLY BENGALI SPEAKING BUT ABLE TO STATE PAIN & MAKE SOME NEEDS KNOWN. BREATHING EVEN & UNLABORED, TOLERATING O2 @ 2LPM VIA NC. ON TELE W/ SINUS RHYTHM, HR 69. DENIES ANY SOB OR DIFFICULTY BREATHING. LEFT HAND IV #24 INTACT & PATENT W/ DRESSING CDI, SALINE LOCKED. DENIES ANY PAIN OR DISCOMFORT @ THIS TIME. SAFETY MEASURES IN PLACE W/ BILATERAL SIDE RAILS UP & BED ALARM ON. INSTRUCTED TO USE CALL LIGHT FOR ASSISTANCE. WILL CONTINUE TO MONITOR.
[2018-04-15] VITALS: BP 149/63
[2018-04-15] MEDS: IPRATROPIUM NEB FS 0.5 MG/2.5 ML AMPUL.NEB NEB SCH ×4 (01:27→19:49)
[2018-04-15 04:00] VITALS: BP 146/60
[2018-04-15 06:06] LABS: BASOPHILS % (AUTO) 0.3 % (0.0-2.0); EOSINOPHILS % (AUTO) 1.3 % (0.0-6.0); HEMATOCRIT 32 % (33-45); LYMPHOCYTES # (AUTO) 1.9 /CMM (0.8-4.8); LYMPHOCYTES % (AUTO) 14.3 % (20.0-44.0); MEAN CORPUSCULAR HGB CONC 32 g/dl (31.0-36.0); MEAN CORPUSCULAR VOLUME 91 fL (82-100); MONOCYTES # (AUTO) 0.9 /CMM (0.1-1.30); MONOCYTES % (AUTO) 6.4 % (2.0-12.0); NEUTROPHILS # (AUTO) 10.5 /CMM (1.8-8.9); NEUTROPHILS % (AUTO) 77.7 % (43.0-81.0); PLATELET COUNT (AUTO) 463 /CMM (150-450); RED BLOOD CELL COUNT(AUTO) 3.46 MIL/uL (4.0-5.2); WHITE BLOOD COUNT (AUTO) 13.6 K/uL (4.3-11.0)
[2018-04-15 06:20] LABS: CALCIUM, SERUM 8.7 mg/dL (8.5-10.1); CARBON DIOXIDE 31 mmol/L (21-32); CHLORIDE 100 mmol/L (98-107); CREATININE 1.4 mg/dL (0.6-1.3); GLUCOSE 103 mg/dL (74-106); MAGNESIUM 2.1 mg/dL (1.8-2.4); PHOSPHORUS 2.8 mg/dL (2.5-4.9); POTASSIUM 3.6 mmol/L (3.5-5.1); SODIUM SERUM 139 mmol/L (136-145); UREA NITROGEN, BLOOD 28 mg/dL (7-18)
--- NOTE | 2018-04-15 07:10 | NUR ---
AIRPORT ELECTRICIAN NOTES RECEIVED PT ON BED.ALERT/ORIENTED X3 WITH TAJIK SPEAKING MOISTLY BUT UNDERSTAND GEORGIAN.ON TELE HR IS 70'S WITH SINUS RHYTHM.NO SOB AND ACUTE DISTRESS NOTED.IV DORINDA IS ON LEFT HAND G24,SITE IS CLEAN,DRY AND INTACT.SAFETY IS MAINTAINED AT ALL TIMES.BED IS IN LOW POSITION AND LOCKED.CALL LIGHT IS WITHIN REACH.WILL CONTINUE TO MONITOR THE PT CLOSELY.
[2018-04-15] MEDS: ACETYLCYSTEINE 10% SOLN 400 MG/4 ML VIAL NEB SCH ×2 (07:35→13:23)
[2018-04-15 08:00] VITALS: BP 153/53
[2018-04-15] MEDS: DILTIAZEM HCL CD 180 MG PO SCH (08:06)
[2018-04-15] MEDS: COLCHICINE 0.6 MG TABLET PO SCH (08:06)
[2018-04-15] MEDS: AMIODARONE HCL 200 MG TABLET PO SCH (08:07)
[2018-04-15] MEDS: PANTOPRAZOLE 40 MG TABLET.DR PO SCH (08:08)
[2018-04-15] MEDS: DOCUSATE SODIUM 100 MG CAPSULE PO SCH ×2 (08:08→16:17)
[2018-04-15] MEDS: CEFEPIME 1 GM in IV D5W 50 ML IV SCH ×2 (08:09→18:19)
[2018-04-15] MEDS: METOPROLOL TARTRATE 50 MG TABLET PO SCH (08:09)
[2018-04-15] MEDS ORDERED: Paricalcitol 1 MCG PO SCH (09:00)
[2018-04-15] MEDS ORDERED: ALLOPURINOL 100 MG TABLET PO SCH (09:00)
[2018-04-15] MEDS ORDERED: FUROSEMIDE 40 MG TABLET PO SCH (09:00)
--- NOTE | 2018-04-15 10:18 | NUR ---
VE TEACHER NOTES INFORMED WARRANTY ADMINISTRATOR CARO WILD REGARDING THE MEDICINE TAB FEBUXOSTAT AND PARICALCITOL IS NOT WITH FAMILY,SAID HOLD FOR NOW AND WILL PLANNING FOR D/C TODAY.WAITING FOR THE ORDER FOR D/C.
--- NOTE | 2018-04-15 10:22 | NUR ---
DIGITAL ACCOUNT COORDINATOR NOTES PT AMBULATED WELL WITH FRONT WHEEL WALKER BY PT.FAMILY IS AT BEDSIDE,TOLERATED WELL.NO COMPLICATIONS NOTED.
[2018-04-15] MEDS: FLUTICASONE PROPIONATE 16 GM BOTTLE NS SCH ×2 (10:49→16:21)
--- NOTE | 2018-04-15 11:28 | NUR ---
CARL received a consult from JUAN PABLO Miller to assist with increase in IHSS hours. CARL contacted pt's daughter Leonela and informed her that she would have to contact the pt's manager of case at [facility] in regards to increasing the IHSS hours. Leonela informed SW she is interested in having home health upon discharge. CARL informed her she will let case monitor Susan know regarding her request for home health. CARL updated Susan regarding family wanting home health upon discharge.
[2018-04-15 12:00] VITALS: BP 139/60
[2018-04-15] MEDS ORDERED: POTASSIUM CHLORIDE 20 MEQ POWDER PACKET PO ONE (13:00)
[2018-04-15] MEDS ORDERED: AMOX-427 PO (14:20)
[2018-04-15] MEDS ORDERED: AMIO200T7 PO (14:20)
[2018-04-15] MEDS ORDERED: METO-358 PO (14:20)
[2018-04-15] MEDS ORDERED: DILT180C66 PO (14:20)
--- NOTE | 2018-04-15 15:30 | NUR ---
FINANCE INTERN NOTES CARPET REPAIRER CARO WILD ORDERED TO D/C PT TODAY TO HOME WITH HOME HEALTH.FAMILY IS AT BEDSIDE AND MADE AWARE ABOUT THE DISCHARGE.SHE ORDERED D/C PT WITH 2MORE DAYS IV ANTIBIOTICS AND FOR THAT ORDERED TO HAVE [facility].NURSING LOCOMOTIVE ENGINEER ELECTRIC MADE AWARE.
[2018-04-15 16:00] VITALS: BP 153/63
[2018-04-15] MEDS: RIVAROXABAN 15 MG TABLET PO SCH (16:17)
--- NOTE | 2018-04-15 17:20 | NUR ---
BOTTOM TURNING LATHE TENDER NOTES NURSE,MS CHILDS CAME AND DONE THE 2 LUMEN [facility] ON LEFT UPPER ARM,SITE IS CLEAN,DRY AND INTACT.PT TOLERATED WELL.
--- NOTE | 2018-04-15 18:00 | NUR ---
PRODUCT ENGINEER NOTES IV MAXIPIME IS STARTED PT IS LEAVING HOME.NO COMPLICATIONS NOTED.
--- NOTE | 2018-04-15 19:23 | NUR ---
STEWARD/STEWARDESS RAILROAD DINING CAR CLOSING NOTES PT IS ON BED.NO SOB AND ACUTE DISTRESS NOTED.ENDORSED TO INSULATION FOREMAN RN FOR CONTINUITY OF CARE AND D/C PROCESS.
--- NOTE | 2018-04-15 19:35 | NUR ---
YARN SORTER NOTE EXIT CARE WAS DONE. DISCHARGE INSTRUCTIONS GIVEN TO FAMILY AND PT. PT IS GOING HOME WITH [facility] FOR ATB'S. NO DISTRESS OR DISCOMFORT NOTED. DENIES PAIN. ON TELE MONITOR SR. DTR AT BED SIDE. SIDE RAILS UP X 3 AND CALL LIGHT WITHIN REACH. VSS. WAITING FOR AMBULANCE.
[2018-04-15 20:00] VITALS: BP 156/54
--- NOTE | 2018-04-15 20:20 | NUR ---
LINER MAN NOTE AMBULANCE ARRIVED TO PICKUP THE PT. REPORT GIVEN TO THEM. VSS. DTR ALSO WITH THE PT. PT LEFT THE ROOM VIA GURNEY WITH AMBULANCE PERSONAL. PT DISCHARGED TO HOME.
[2018-04-28] MEDS ORDERED: FURO20TA4 PO (07:27)
[2018-04-28] MEDS ORDERED: AMIO200T4 PO (07:27)
[2018-04-28] MEDS ORDERED: FEBU40TA PO (07:27)
[2018-04-28] MEDS ORDERED: METO100T14 PO (07:27)
[2018-04-28] MEDS ORDERED: ALLO300T2 PO (07:27)
[2018-04-28] MEDS ORDERED: POTA-10 PO (07:27)
[2018-04-28] MEDS ORDERED: ATEN100T PO (07:27)
[2018-04-28] MEDS ORDERED: PARI1CAP PO (07:27)
[2018-04-28] MEDS ORDERED: DILT360C32 PO (07:27)
[2018-04-28] MEDS ORDERED: APIX5TAB PO (07:27)
[2018-05-03] MEDS ORDERED: FURO20TA4 PO (08:18)
== END 2018-04-15 20:59 | disposition home or self-care (01) | DRG 871 ==
LOC: ER 23:04 → ICU 04-09 03:55 → TELE1 04-12 18:03
PROC: 05H633Z Insertion of Infusion Device into Left Subclavian Vein, Percutaneous Approach (ICD-10-PCS; principal; 2018-04-15)
PROC: B547ZZA Ultrasonography of Left Subclavian Vein, Guidance (ICD-10-PCS; 2018-04-15)
DX: A41.9 Sepsis, unspecified organism (principal); J18.9 Pneumonia, unspecified organism; J96.00 Acute respiratory failure, unspecified whether with hypoxia or hypercapnia; I50.33 Acute on chronic diastolic (congestive) heart failure; N17.9 Acute kidney failure, unspecified; I13.0 Hypertensive heart and chronic kidney disease with heart failure and stage 1 through stage 4 chronic kidney disease, or unspecified chronic kidney disease; E44.1 Mild protein-calorie malnutrition; J98.11 Atelectasis; L03.113 Cellulitis of right upper limb; I48.91 Unspecified atrial fibrillation; E83.42 Hypomagnesemia; F41.9 Anxiety disorder, unspecified; Z87.01 Personal history of pneumonia (recurrent); Z98.890 Other specified postprocedural states; Z79.899 Other long term (current) drug therapy; Y92.9 Unspecified place or not applicable; N18.9 Chronic kidney disease, unspecified; Z79.01 Long term (current) use of anticoagulants; M10.9 Gout, unspecified; T46.5X5A Adverse effect of other antihypertensive drugs, initial encounter; T50.1X5A Adverse effect of loop [high-ceiling] diuretics, initial encounter; G47.33 Obstructive sleep apnea (adult) (pediatric); M54.16 Radiculopathy, lumbar region; M48.00 Spinal stenosis, site unspecified; M54.12 Radiculopathy, cervical region; Z68.28 Body mass index [BMI] 28.0-28.9, adult; E66.9 Obesity, unspecified; K59.00 Constipation, unspecified
CPT/HCPCS: 36415; 36569; 36600; 71045-TC; 71250-TC; 72141-TC; 72148-TC; 74018; 78582; 80048-TC; 80053-TC; 80061-TC; 80076-TC; 80162-TC; 82803-TC; 83605-TC; 83735-TC; 83880; 84100-TC; 84443-TC; 84484-TC; 85025-TC; 85378-TC; 87040-TC; 87081-TC; 87400; 93307-TC; 93308-TC; 93880-TC; 93970-TC; 94799-TC; A4216; A4606; A9540; A9567; C1751; G0378; J0282; J0692; J0696; J1650; J1940; J1956; J2405; J3370; J3475; J3490; J7030; J7042; J7050; J7060; Z7610

== ENCOUNTER 2018-06-06 09:59 | Outpatient (CLI) | payer MEDICARE, OTHER ==
[~2018-06-06 09:59] MED LIST: ALLO300T2 PO; ALPR0.255 PO; AMIO200T4 PO; AMIO200T7 PO; APIX5TAB PO; ATEN100T PO; CLON0.1T PO; COLC0.6T67 PO; DIGO125T PO; DILT180C66 PO; DILT240C53 PO; DILT360C32 PO; ESOM40CA PO; FEBU40TA PO; FURO20TA4 PO; METO-358 PO; METO100T14 PO; OLME20TA13 PO; PARI1CAP PO; PARI1CAP3 PO; POTA-10 PO; POTA8TAB3 PO
[2018-06-06 10:39] LABS: BASOPHILS % (AUTO) 0.5 % (0.0-2.0); EOSINOPHILS % (AUTO) 0.4 % (0.0-6.0); HEMATOCRIT 33 % (33-45); LYMPHOCYTES # (AUTO) 1.6 /CMM (0.8-4.8); LYMPHOCYTES % (AUTO) 17.7 % (20.0-44.0); MEAN CORPUSCULAR HGB CONC 33 g/dl (31.0-36.0); MEAN CORPUSCULAR VOLUME 88 fL (82-100); MONOCYTES # (AUTO) 0.6 /CMM (0.1-1.30); MONOCYTES % (AUTO) 6.4 % (2.0-12.0); NEUTROPHILS # (AUTO) 6.7 /CMM (1.8-8.9); PLATELET COUNT (AUTO) 404 /CMM (150-450); RED BLOOD CELL COUNT(AUTO) 3.78 MIL/uL (4.0-5.2); WHITE BLOOD COUNT (AUTO) 8.9 K/uL (4.3-11.0)
[2018-06-06 10:48] LABS: CALCIUM, SERUM 9.5 mg/dL (8.5-10.1); CARBON DIOXIDE 25 mmol/L (21-32); CHLORIDE 94 mmol/L (98-107); CREATININE 2.1 mg/dL (0.6-1.3); GLUCOSE 157 mg/dL (74-106); POTASSIUM 3.9 mmol/L (3.5-5.1); SODIUM SERUM 132 mmol/L (136-145); UREA NITROGEN, BLOOD 29 mg/dL (7-18)
== END 2018-06-06 23:59 | disposition home or self-care (01) ==
LOC: US 09:59
PROVIDERS: ATTEND Internal Medicine Pulmonary Disease
DX: J90 Pleural effusion, not elsewhere classified (principal); I10 Essential (primary) hypertension; J18.9 Pneumonia, unspecified organism; I48.91 Unspecified atrial fibrillation
CPT/HCPCS: 36415; 71045-TC; 76604-TC; 80048-TC; 85025-TC; 85730-TC

== ENCOUNTER 2018-07-06 19:09 | Inpatient (IN) | payer MEDICARE, OTHER ==
[~2018-07-06] VITALS: Ht 157.5 cm; Wt 75.3 kg
[2018-07-06 19:35] LABS: BASOPHILS # (AUTO) 0.1 /CMM (0.0-0.2); BASOPHILS % (AUTO) 0.8 % (0.0-2.0); EOSINOPHILS % (AUTO) 2.3 % (0.0-6.0); HEMATOCRIT 33 % (33-45); HEMOGLOBIN 10.7 g/dL (11.5-14.8); LYMPHOCYTES # (AUTO) 1.6 /CMM (0.8-4.8); LYMPHOCYTES % (AUTO) 16.3 % (20.0-44.0); MEAN CORPUSCULAR HGB CONC 32 g/dl (31.0-36.0); MEAN CORPUSCULAR VOLUME 92 fL (82-100); MONOCYTES # (AUTO) 0.8 /CMM (0.1-1.30); MONOCYTES % (AUTO) 8.5 % (2.0-12.0); NEUTROPHILS # (AUTO) 7.1 /CMM (1.8-8.9); NEUTROPHILS % (AUTO) 72.1 % (43.0-81.0); PLATELET COUNT (AUTO) 310 /CMM (150-450); RED BLOOD CELL COUNT(AUTO) 3.61 MIL/uL (4.0-5.2); WHITE BLOOD COUNT (AUTO) 9.8 K/uL (4.3-11.0)
--- NOTE | 2018-07-06 19:45 | NUR ---
[id number] FROM HOME C/O NEAR SYNCOPAL EPISODE TODAY AND YESTERDAY. DENIES CP/SOB. A/O X 3. PT TRANSFERRED TO BED AND TOLERATED WELL. PT PLACED ON THE MONITOR WITH BP WNL, BRADYCARDIA, AND O2 SAT @ 98%. PT RESTING IN COMFORTABLE POSITION. PT HAS RIGHT HAND 20G THAT IS CLEAN DRY INTACT AND PATENT PLACED BY EMS IN THE FIELD. AWAITING MD PEREZ.
[2018-07-06 19:50] LABS: CALCIUM, SERUM 9.1 mg/dL (8.5-10.1); CARBON DIOXIDE 27 mmol/L (21-32); CHLORIDE 99 mmol/L (98-107); CREATININE 2.2 mg/dL (0.6-1.3); GLUCOSE 151 mg/dL (74-106); POTASSIUM 3.8 mmol/L (3.5-5.1); SODIUM SERUM 133 mmol/L (136-145); UREA NITROGEN, BLOOD 38 mg/dL (7-18)
[2018-07-06 19:55] LABS: ALANINE AMINOTRANSFERASE 33 U/L (12-78); ALBUMIN 3.4 g/dL (3.4-5.0); ALKALINE PHOSPHATASE 81 U/L (46-116); ASPARTATE AMINOTRANSFERASE 32 U/L (15-37); BILIRUBIN,DIRECT 0.1 mg/dL (0.0-0.2); BILIRUBIN,TOTAL 0.3 mg/dL (0.2-1.0); TOTAL PROTEIN, SERUM 7.2 g/dL (6.4-8.2)
[2018-07-06] MEDS ORDERED: IV NS 0.9% 1,000 ML IV PRN (20:22)
[2018-07-06] MEDS ORDERED: DOPamine 400MG/D5W 250ML RTU 250 ML IV ONE (20:29)
[2018-07-06] MEDS ORDERED: ACETAMINOPHEN 325 MG TABLET PO PRN (20:30)
[2018-07-06] MEDS ORDERED: MAG HYDROX/AL HYDROX/SIMETH 30 ML UDC PO PRN (20:30)
[2018-07-06] MEDS ORDERED: DOPamine 400 MG in IV D5W 250 ML IV ONE (20:30)
[2018-07-06] MEDS ORDERED: ONDANSETRON HCL/PF 4 MG/2 ML VIAL IVP PRN (20:30)
[2018-07-06] MEDS ORDERED: Z GUARD REMEDY 2 OZ OINT TP PRN (20:30)
[2018-07-06] MEDS ORDERED: MAGNESIUM HYDROXIDE 30 ML UDC PO PRN (20:30)
[2018-07-06] MEDS ORDERED: ZOLPIDEM TARTRATE 5 MG TABLET PO PRN (20:30)
[2018-07-06] MEDS ORDERED: HYDROCODONE/APAP 5/325MG 1 EACH TABLET PO PRN (20:30)
--- NOTE | 2018-07-06 20:44 | NUR ---
ADMIT ICU BED 260 DX BRADYCARDIA
[2018-07-06] MEDS ORDERED: ONDANSETRON HCL/PF 4 MG/2 ML VIAL ONE (21:01)
--- NOTE | 2018-07-06 21:21 | NUR ---
GAVE REPORT TO ADILSON FITZGERALD IN ICU FOR CONTINUITY OF CARE.
[2018-07-06] MEDS ORDERED: ONDANSETRON HCL/PF 4 MG/2 ML VIAL IV ONE (21:30)
--- NOTE | 2018-07-06 21:30 | NUR ---
TRANSPORTED PT TO ICU IN NO ACUTE DISTRESS IN BED. PT TOLERATED TRANSFER WELL. PT CARE TRANSFERRED TO ADILSON FITZGERALD FOR COTNINUITY OF CARE.
[2018-07-06 22:00] VITALS: BP 131/67
[2018-07-06 22:30] VITALS: BP 152/55
[2018-07-06] MEDS ORDERED: DOPamine 400 MG/D5W 250 ML RTU PIGGYBACK IV ONE (22:30)
--- NOTE | 2018-07-06 22:51 | NUR ---
SERVICE PLANNER. ADMISSION.RECEIVED THE PT FROM ER VIA [employer]. PT AWAKE, ALERT FOLLOW COMMANDS. DIAGNISED WITH SHAHNAZ CARDIA. HEART RATE IS 38. DOPAMINE DRIP RUNNING, OXYGEN 2L VIA NASAL CANNULA. SAT 98%. NO ACUTE DISTRESS NOTED. IV LT HAND 18, AND 29G, IVF NS 75ML/H, HOB ELEVATED. WILL CONTINUE TO MONITOR VITALS.
[2018-07-06 23:00] VITALS: BP 158/60
[2018-07-07] VITALS (40 sets, daily range): BP systolic 77–174; BP diastolic 29–100
--- NOTE | 2018-07-07 03:16 | NUR ---
BOOM MASTER. AM CARE. ORAL CARE, BED BATH GIVEN. LINEN CHANGED. REMAINING SAME OXYGEN 2L VIA NASAL CANNULA TOLERATED WELL, SAT 99%. NO ACUTE DISTRESS NOTED. CULINARY ARTIST SHOWING S SHAHNAZ.IV LT HAND 18G AND 20G. IVF NS 75ML/H,DOPAMINE 4MCG/MIN. HOB ELEVATED. TURN AND REPOSITION Q2H. WILL CONTINUE TO MONITOR VITALS,
[2018-07-07 05:19] LABS: BASOPHILS % (AUTO) 0.3 % (0.0-2.0); HEMATOCRIT 30 % (33-45); HEMOGLOBIN 9.9 g/dL (11.5-14.8); LYMPHOCYTES # (AUTO) 1.5 /CMM (0.8-4.8); LYMPHOCYTES % (AUTO) 20.3 % (20.0-44.0); MEAN CORPUSCULAR HGB CONC 33 g/dl (31.0-36.0); MEAN CORPUSCULAR VOLUME 91 fL (82-100); MONOCYTES # (AUTO) 0.6 /CMM (0.1-1.30); MONOCYTES % (AUTO) 8.4 % (2.0-12.0); NEUTROPHILS # (AUTO) 5.2 /CMM (1.8-8.9); PLATELET COUNT (AUTO) 209 /CMM (150-450); WHITE BLOOD COUNT (AUTO) 7.5 K/uL (4.3-11.0)
[2018-07-07 05:25] LABS: B-TYPE NATRIURETIC PEPTIDE 4062 PG/ML (0-125); CALCIUM, SERUM 8.9 mg/dL (8.5-10.1); CARBON DIOXIDE 26 mmol/L (21-32); CHLORIDE 101 mmol/L (98-107); CREATININE 1.9 mg/dL (0.6-1.3); GLUCOSE 119 mg/dL (74-106); MAGNESIUM 1.9 mg/dL (1.8-2.4); PHOSPHORUS 3.7 mg/dL (2.5-4.9); POTASSIUM 3.9 mmol/L (3.5-5.1); SODIUM SERUM 137 mmol/L (136-145); UREA NITROGEN, BLOOD 35 mg/dL (7-18)
[2018-07-07 05:29] LABS: CHOLESTEROL 171 mg/dL (<200); HDL CHOLESTEROL 78 mg/dL (40-60); LDL 87 mg/dL (0-99); THYROID STIMULATING HORMONE 3.646 uIU/mL (0.358-3.74); TRIGLYCERIDES 88 mg/dL (30-150)
[2018-07-07] MEDS ORDERED: IV NS 0.9% 1,000 ML IV PRN (06:18)
--- NOTE | 2018-07-07 06:19 | NUR ---
BRAKE MACHINE OPERATOR. DR AGUIRRE SEEN THE PT. IVF NS DECREASED @50ML/H. CARDIAC DIET STARTED
[2018-07-07] MEDS ORDERED: DOPamine 400 MG/D5W 250 ML RTU PIGGYBACK IV PRN (07:00)
--- NOTE | 2018-07-07 07:15 | NUR ---
RECEIVED PATIENT FROM FROM [facility]. PATIENT A/OX3 TAMAZIGHT SPEAKING; BOARD MACHINE SET UP OPERATOR AT BEDSIDE. PATIENT DENIES PAIN, SOB, DIFFICULTY BREATHING OR PAIN. VSS. ON 1MCG/KG/MIN OF DOPAMINE AND HR HAS REMAINED OVER 40/MIN. IV SITES C/D/I/P WITH IVF RUNNING PER ORDER. SKIN, SAFETY, ASPIRATION PRECAUTIONS IN PLACE AND WILL MONITOR.
--- NOTE | 2018-07-07 08:39 | NUR ---
SPOKE WITH DR AGUIRRE AND NOTIFIED MD PATIENT ON 1MCG/KG/MIN. UPDATED MD ON VS. PER MD ESPINOZA TO DC DOPAMINE AND MONITOR.
[2018-07-07] MEDS ORDERED: COLCHICINE 0.6 MG TABLET PO SCH (09:00)
[2018-07-07] MEDS: APIXABAN 2.5 MG TABLET PO SCH ×2 (09:20→17:52)
--- NOTE | 2018-07-07 11:14 | NUR ---
NOTIFIED DR AGUIRRE PATIENT BP ELEVATED. PER MD ESPINOZA TO RESTART AMLODIPINE 5MG DAILY OK TO GIVE NOW.
[2018-07-07] MEDS ORDERED: AMLODIPINE BESYLATE 5 MG TABLET PO SCH (11:30)
[2018-07-07] MEDS ORDERED: FUROSEMIDE 40 MG/4 ML VIAL IV ONE (12:30)
--- NOTE | 2018-07-07 14:10 | NUR ---
urine sample collected and sent for lab p/u
[2018-07-07 15:42] LABS: APPEARANCE,URINE CLEAR (CLEAR); BILIRUBIN,URINE NEGATIVE (NEGATIVE); BLOOD, URINE NEGATIVE Ery/uL (NEGATIVE); COLOR,URINE YELLOW (YELLOW); KETONES,URINE NEGATIVE (NEGATIVE); LEUKOCYTE ESTERASE ,URINE TRACE (NEGATIVE); NITRITE, URINE NEGATIVE (NEGATIVE); PROTEIN,URINE NEGATIVE (NEGATIVE); UGLUCOSE NEGATIVE (NEGATIVE); UROBILINOGEN,URINE 0.2 EU/dL (0.2)
[2018-07-07 16:10] LABS: BACTERIA,URINE None seen /HPF (None Seen); RBC,URINE NONE SEEN /HPF (0-2); SQUAMOUS EPITHELIAL CELL,UR Moderate /HPF (None Seen); WBC,URINE 0-2 /HPF (0-3)
--- NOTE | 2018-07-07 18:15 | NUR ---
NOTIFIED DR AGUIRRE PATIENT BP CONTINUES SYSTOLIC 160'S HR 50'S-60'S. PER OK TO GIVE ONE TIME 5MG AMLODIPINE PO
--- NOTE | 2018-07-07 18:18 | NUR ---
PER DR CARLA ESPINOZA TO CHANGE STANDING ORDER AMLODIPINE TO 10MG DAILY PO
[2018-07-07] MEDS ORDERED: AMLODIPINE BESYLATE 5 MG TABLET PO ONE (18:30)
--- NOTE | 2018-07-07 18:51 | NUR ---
ALL DUE MEDS GIVEN AND ALL NEEDS MET IV SITES C/D/I/P. PT TOLERATING LOW FLOW 02. HR STABLE. PATIENT DENIES SOB, DIFFICULTY BREATHING, OR PAIN. MIN ASSIST TO BSC WITHOUT COMPLICATIONS. SAFETY, SKIN, ASPIRATION PRECAUTIONS IN PLACE AND MONITORED THROUGHOUT DAY.
--- NOTE | 2018-07-07 19:30 | NUR ---
[facility] HAND NOTE PT RECEIVED A/O X3 AND ABLE TO MAKE SOME NEEDS KNOWN. ON 2L OF O2 VIA NC AND SATURATING WELL. BREATHING EVEN AND UNLABORED. NO C/O PAIN OR DISCOMFORT NOTED AT THIS TIME. IV CLEAN, DRY AND PATENT. TELE- SR 60. ASSISTED TO BED SIDE COMMODE SAFELY. CALL LIGHT WITHIN REACH. WILL MONITOR.
[2018-07-08] VITALS (16 sets, daily range): BP systolic 144–170; BP diastolic 49–75
[2018-07-08 04:37] LABS: BASOPHILS % (AUTO) 0.3 % (0.0-2.0); HEMATOCRIT 33 % (33-45); HEMOGLOBIN 10.7 g/dL (11.5-14.8); LYMPHOCYTES # (AUTO) 2.3 /CMM (0.8-4.8); LYMPHOCYTES % (AUTO) 30.6 % (20.0-44.0); MEAN CORPUSCULAR HGB CONC 33 g/dl (31.0-36.0); MEAN CORPUSCULAR VOLUME 91 fL (82-100); MONOCYTES # (AUTO) 0.6 /CMM (0.1-1.30); MONOCYTES % (AUTO) 7.7 % (2.0-12.0); NEUTROPHILS # (AUTO) 4.4 /CMM (1.8-8.9); NEUTROPHILS % (AUTO) 58.4 % (43.0-81.0); PLATELET COUNT (AUTO) 230 /CMM (150-450); WHITE BLOOD COUNT (AUTO) 7.5 K/uL (4.3-11.0)
[2018-07-08 04:50] LABS: CALCIUM, SERUM 8.8 mg/dL (8.5-10.1); CARBON DIOXIDE 28 mmol/L (21-32); CHLORIDE 104 mmol/L (98-107); CREATININE 1.5 mg/dL (0.6-1.3); GLUCOSE 96 mg/dL (74-106); MAGNESIUM 1.5 mg/dL (1.8-2.4); PHOSPHORUS 3.5 mg/dL (2.5-4.9); POTASSIUM 3.8 mmol/L (3.5-5.1); SODIUM SERUM 142 mmol/L (136-145); UREA NITROGEN, BLOOD 31 mg/dL (7-18)
--- NOTE | 2018-07-08 07:36 | NUR ---
RECEIVED CARE OF PATIENT. RESTING WELL AWAKE TO LIGHT TOUCH. A/OX3. IV SITES C/D/I/P. TOLERATING LOW FLOW 02 100%. PATIENT DENIES PAIN, SOB, DIFFICULTY BREATHING. PER RN BP ELEVATED THROUGHOUT NIGHT AND PATIENT BECAME ANXIOUS DURING NIGHT; WILL MONITOR. SAFETY, SKIN, ASPIRATION PRECAUTIONS IN PLACE AND WILL MONITOR.
[2018-07-08] MEDS: AMLODIPINE BESYLATE 5 MG TABLET PO SCH (08:22)
[2018-07-08] MEDS: APIXABAN 2.5 MG TABLET PO SCH ×2 (08:32→17:21)
[2018-07-08] MEDS: Magnesium 1GM/D5W 100ML PREMIX 100 ML IV SCH ×3 (08:48→11:19)
[2018-07-08] MEDS: LEVOFLOXACIN (500MG) 500 MG TABLET PO SCH (09:09)
--- NOTE | 2018-07-08 11:45 | NUR ---
ASH WILD AT BEDSIDE UPDATED ON PATIENT CONDITION LABS, VS. PER ASSISTANT [employer] STORE MANAGER OK TO DOWNGRADE PATIENT TO TELE
--- NOTE | 2018-07-08 12:30 | NUR ---
REPORT GIVEN TO LIA FRANCISCO FOR GENA
--- NOTE | 2018-07-08 12:46 | NUR ---
PATIENT TRANSFERED TO TELE BED 308-1. SPOKE WITH CLAUDIO DAUGHTER AND NOTIFIED OF TRANSFERE
--- NOTE | 2018-07-08 13:00 | NUR ---
LABORER ROAD NOTES RECEIVED PATIENT FROM ICU PATIENT ALERT, ORIENTED X3 [id number] SPEAKING. NO SOB OR ACUTE DISTRESS NOTED. PATIENT ORIENTED TO ROOM. CALL LIGHT WITHIN REACH. WILL CONTINUE TO MONITOR.
[2018-07-08] MEDS: FUROSEMIDE 20 MG TABLET PO SCH (17:39)
[2018-07-08] MEDS ORDERED: BENAZEPRIL HCL 10 MG TABLET PO SCH (18:00)
--- NOTE | 2018-07-08 18:14 | NUR ---
SADDLE STITCHER NOTES PATIENT IN BED RESTING NO SOB OR ACUTE DISTRESS NOTED. PATIENT ALERT, ORIENTED X3. ALL DUE MEDICATIONS ADMINISTERED. ALL NEEDS MET. PATIENT SINUS RHYTHM WITH BBB. SEEN BY REWRITER NEW MEDICATIONS PRESCRIBED FOR HIGH BLOOD PRESSURE. WILL ENDORSE CARE TO PM SHIFT.
--- NOTE | 2018-07-08 19:10 | NUR ---
INSPECTOR RAG SORTING NOTES RECEIVED PT IN BED, ALERT AND ORIENTED X 3, VERBALLY RESPONSIVE, NO SOB NOTED, BREATHING EVEN AND UNLABORED, IN NO ACUTE DISTRESS AT THIS TIME. ALL PATIENT'S NEEDS ATTENDED TO, PLACED CALL LIGHT WITHIN EASY REACH. BED IN LOW POSITION AND LOCKED IN PLACE. WILL CONTINUE TO MONITOR PT. PT ON TELE MONITORING WITH SR @ 70s.
[2018-07-09 00:42] VITALS: BP 154/68
[2018-07-09 04:00] VITALS: BP 162/73
--- NOTE | 2018-07-09 06:20 | NUR ---
CLOSING NOTES PT IN BED, ASLEEP BUT EASILY AROUSABLE, NO SOB, BREATHING EVEN AND UNLABORED. NO DISTRESS NOTED DURING THIS SHIFT. NO CHEST PAIN/ DIZZINESS. ALL PATIENT'S NEEDS ATTENDED TO. PT ON TELE MONITORING WITH SR AT 70S. BED PLACED IN LOW POSITION AND LOCKED IN PLACE. CALL LIGHT WITHIN EASY REACH. WILL ENDORSE TO AM SHIFT NURSE FOR CONTINUITY OF CARE.
--- NOTE | 2018-07-09 07:30 | NUR ---
TELE/RN OPENING NOTE PATIENT IN BED IN STABLE CONDITION. A/O X 3, AMHARIC SPEAKING. NO SIGNS OF ACUTE DISTRESS. NO COMPLAIN OF PAIN OR DISCOMFORT. ON TELE MONITOR NOTED WITH SINUS RHYTHM 70'S. ALL NEEDS ATTENDED TO. CALL LIGHT WITHIN REACH. WILL CONTINUE TO MONITOR TO ENSURE SAFETY.
[2018-07-09 08:00] VITALS: BP 155/66
[2018-07-09 08:42] VITALS: BP 155/66
[2018-07-09] MEDS: LEVOFLOXACIN (500MG) 500 MG TABLET PO SCH (08:42)
[2018-07-09] MEDS: FUROSEMIDE 20 MG TABLET PO SCH (08:42)
[2018-07-09] MEDS: AMLODIPINE BESYLATE 5 MG TABLET PO SCH (08:42)
[2018-07-09] MEDS: APIXABAN 2.5 MG TABLET PO SCH (08:43)
[2018-07-09 09:59] LABS: BASOPHILS % (AUTO) 0.3 % (0.0-2.0); HEMATOCRIT 31 % (33-45); LYMPHOCYTES # (AUTO) 1.2 /CMM (0.8-4.8); LYMPHOCYTES % (AUTO) 16.7 % (20.0-44.0); MEAN CORPUSCULAR HGB CONC 33 g/dl (31.0-36.0); MEAN CORPUSCULAR VOLUME 91 fL (82-100); MONOCYTES # (AUTO) 0.6 /CMM (0.1-1.30); MONOCYTES % (AUTO) 7.8 % (2.0-12.0); NEUTROPHILS # (AUTO) 5.2 /CMM (1.8-8.9); NEUTROPHILS % (AUTO) 73.2 % (43.0-81.0); PLATELET COUNT (AUTO) 211 /CMM (150-450); RED BLOOD CELL COUNT(AUTO) 3.36 MIL/uL (4.0-5.2); WHITE BLOOD COUNT (AUTO) 7.1 K/uL (4.3-11.0)
[2018-07-09 10:15] LABS: ALANINE AMINOTRANSFERASE 20 U/L (12-78); ALBUMIN 2.8 g/dL (3.4-5.0); ALKALINE PHOSPHATASE 66 U/L (46-116); ASPARTATE AMINOTRANSFERASE 16 U/L (15-37); BILIRUBIN,TOTAL 0.5 mg/dL (0.2-1.0); CALCIUM, SERUM 9.2 mg/dL (8.5-10.1); CARBON DIOXIDE 30 mmol/L (21-32); CHLORIDE 101 mmol/L (98-107); CREATININE 1.4 mg/dL (0.6-1.3); GLUCOSE 154 mg/dL (74-106); SODIUM SERUM 138 mmol/L (136-145); TOTAL PROTEIN, SERUM 6.3 g/dL (6.4-8.2); UREA NITROGEN, BLOOD 28 mg/dL (7-18)
[2018-07-09 10:17] LABS: POTASSIUM 2.8 mmol/L (3.5-5.1)
--- NOTE | 2018-07-09 10:18 | NUR ---
TELE/RN RECEIVED CALL FROM WICHO FROM LAB AND HE NOTIFY PATIENT'S POTASSIUM 2.8L, NOTIFY.
[2018-07-09] MEDS: POTASSIUM CHLORIDE 20 MEQ TAB.PRT.SR PO SCH ×3 (11:35→14:05)
--- NOTE | 2018-07-09 14:46 | NUR ---
TELE/NEEDLE GRINDER PATIENT DISCHARGE HOME IN STABLE CONDITION. A/O X 3, GABONESE SPEAKING. NO SIGNS OF ACUTE DISTRESS. NO COMPLAIN OF PAIN OR DISCOMFORT. DISCHARGE INSTRUCTIONS AND TEACHINGS PROVIDED TO LOTUS SNYDER, VERBALIZED UNDERSTANDING MADE AWARE REGARDING NEW MEDICATIONS ORDERED BY DR AGUIRRE. PER CLAUDIO SHE ALREADY RECEIVED NEW MEDS ORDER FROM PHARMACY. MADE AWARE TO MAKE APPT WITH DR LEVINE WITHIN 2 WEEKS, OFFICE NUMBER PROVIDED, PER CLAUDIO SHE WILL MAKE APPT TOMORROW. ALL NEEDS ATTENDED TO. NAME BAND AND IV LINE REMOVED. LEFT IN STABLE CONDITION VIA PRIVATE CAR ACCOMPANIED BY LOTUS SNYDER.
[2018-07-09] MEDS ORDERED: BENAZEPRIL HCL 10 MG TABLET PO SCH (18:00)
== END 2018-07-09 14:25 | disposition home or self-care (01) | DRG 308 ==
LOC: ER 19:13 → ICU 21:03 → TELE 07-08 12:29
DX: R00.1 Bradycardia, unspecified (principal); N17.0 Acute kidney failure with tubular necrosis; I13.0 Hypertensive heart and chronic kidney disease with heart failure and stage 1 through stage 4 chronic kidney disease, or unspecified chronic kidney disease; I50.32 Chronic diastolic (congestive) heart failure; N18.4 Chronic kidney disease, stage 4 (severe); N39.0 Urinary tract infection, site not specified; J96.10 Chronic respiratory failure, unspecified whether with hypoxia or hypercapnia; I31.3 Pericardial effusion (noninflammatory); E44.0 Moderate protein-calorie malnutrition; J90 Pleural effusion, not elsewhere classified; I48.0 Paroxysmal atrial fibrillation; Z99.81 Dependence on supplemental oxygen; E11.22 Type 2 diabetes mellitus with diabetic chronic kidney disease; E86.0 Dehydration; Z88.1 Allergy status to other antibiotic agents; Z88.2 Allergy status to sulfonamides; F41.9 Anxiety disorder, unspecified; M48.00 Spinal stenosis, site unspecified; M10.9 Gout, unspecified; Z79.01 Long term (current) use of anticoagulants; D63.8 Anemia in other chronic diseases classified elsewhere; E87.6 Hypokalemia; E66.9 Obesity, unspecified; Z68.30 Body mass index [BMI] 30.0-30.9, adult; B96.89 Other specified bacterial agents as the cause of diseases classified elsewhere; R00.8 Other abnormalities of heart beat
CPT/HCPCS: 36415; 71045-TC; 80048-TC; 80053-TC; 80061-TC; 80076-TC; 80162-TC; 81000-TC; 83735-TC; 83880; 84100-TC; 84443-TC; 84484-TC; 85025-TC; 85730-TC; 87081-TC; 93307-TC; G0378; J1265; J1940; J2405; J3475; J7030; J7060

== ENCOUNTER 2019-06-25 22:59 | Inpatient (IN) | payer MEDICARE, OTHER ==
[~2019-06-25] VITALS: Ht 157.5 cm; Wt 80.1 kg
[~2019-06-25 22:59] MED LIST changes: -AMIO200T4 PO; -AMIO200T7 PO; -DILT180C66 PO; -DILT240C53 PO; -DILT360C32 PO; -METO-358 PO; -METO100T14 PO; -POTA8TAB3 PO
--- NOTE | 2019-06-25 23:23 | NUR ---
biba for c/o r hip, elbow and shoulder pain s/p GLF.
[2019-06-25] MEDS ORDERED: MECLIZINE HCL 12.5 MG TABLET PO ONE (23:30)
[2019-06-25] MEDS ORDERED: MECLIZINE HCL 12.5 MG TABLET ONE (23:31)
[2019-06-25 23:33] LABS: BASOPHILS # (AUTO) 0.1 /CMM (0.0-0.2); BASOPHILS % (AUTO) 0.9 % (0.0-2.0); EOSINOPHILS % (AUTO) 1.4 % (0.0-6.0); HEMATOCRIT 37 % (33-45); HEMOGLOBIN 12.1 g/dL (11.5-14.8); LYMPHOCYTES # (AUTO) 2.3 /CMM (0.8-4.8); LYMPHOCYTES % (AUTO) 23.1 % (20.0-44.0); MEAN CORPUSCULAR HGB CONC 33 g/dl (31.0-36.0); MEAN CORPUSCULAR VOLUME 93 fL (82-100); MONOCYTES # (AUTO) 0.8 /CMM (0.1-1.30); MONOCYTES % (AUTO) 7.6 % (2.0-12.0); NEUTROPHILS # (AUTO) 6.8 /CMM (1.8-8.9); PLATELET COUNT (AUTO) 288 /CMM (150-450); RED BLOOD CELL COUNT(AUTO) 3.92 MIL/uL (4.0-5.2); WHITE BLOOD COUNT (AUTO) 10.1 K/uL (4.3-11.0)
[2019-06-25 23:40] LABS: CALCIUM, SERUM 9.3 mg/dL (8.5-10.1); CREATININE 1.3 mg/dL (0.6-1.3)
[2019-06-25] MEDS ORDERED: MORPHINE SULFATE INJ 4 MG/ML DISP.SYRIN ONE (23:51)
[2019-06-26] VITALS (7 sets, daily range): BP systolic 147–188; BP diastolic 60–83
[2019-06-26] MEDS ORDERED: MORPHINE SULFATE INJ 2 MG/ML DISP.SYRIN IV ONE
[2019-06-26] MEDS ORDERED: ACETAMINOPHEN 325 MG TABLET ONE (00:04)
[2019-06-26] MEDS ORDERED: ACETAMINOPHEN 325 MG TABLET PO ONE (00:30)
--- NOTE | 2019-06-26 01:33 | NUR ---
at [facility] side
--- NOTE | 2019-06-26 01:44 | NUR ---
DR. CARVALHO ON THE PHONE WITH DR. WYNN
[2019-06-26] MEDS ORDERED: CETI-110 PO (01:46)
--- NOTE | 2019-06-26 01:46 | NUR ---
home meds list updated per dtr's list
[2019-06-26] MEDS ORDERED: IV 1/2NS 1000 ML 1,000 ML IV PRN (01:50)
--- NOTE | 2019-06-26 01:52 | NUR ---
DR. CARVALHO ON THE PHONE WITH EDUARD ANN (ORTHO [employer] MEMBER)
[2019-06-26] MEDS ORDERED: Z GUARD REMEDY 2 OZ OINT TP PRN (02:00)
[2019-06-26] MEDS ORDERED: MAGNESIUM HYDROXIDE 30 ML UDC PO PRN (02:00)
[2019-06-26] MEDS ORDERED: ONDANSETRON HCL/PF 4 MG/2 ML VIAL IVP PRN (02:00)
[2019-06-26] MEDS ORDERED: MAG HYDROX/AL HYDROX/SIMETH 30 ML UDC PO PRN (02:00)
[2019-06-26] MEDS ORDERED: MORPHINE SULFATE INJ 2 MG/ML DISP.SYRIN IV PRN (02:00)
[2019-06-26] MEDS ORDERED: ZOLPIDEM TARTRATE 5 MG TABLET PO PRN (02:00)
[2019-06-26] MEDS ORDERED: HYDROCODONE/APAP 5/325MG 1 EACH TABLET ONE (02:59)
[2019-06-26] MEDS: HYDROCODONE/APAP 5/325MG 1 EACH TABLET PO PRN ×3 (03:02→12:29)
--- NOTE | 2019-06-26 03:21 | NUR ---
pt was transferred to 307-2 under ACLS. f/c inserted prior to the transfer with dr. Douglas's approval. pt was provided w/ r arm sling and medication. Family at the bed side
--- NOTE | 2019-06-26 03:30 | NUR ---
ADMISSION 79 Y/O female admitted, s/p GLF at home. Patient is A/O x3 Lithuanian speaking, understand some Amharic, Amarilys corea assist with translation. Lead applied, sinus rhythm in the Tele monitor. Fall precaution maintained, orientation to room, unit, staff.
--- NOTE | 2019-06-26 06:36 | NUR ---
END OF SHIFT REPORT Patient in bed, A/O x3. Stable oxygen saturation on RA. Sinus rhythm in the Tele monitor. NPO, IVF maintained. Right arm with sling in place, supported RLE with pillow when repositioning. Plan Ortho consult today. Fall precaution maintained.
--- NOTE | 2019-06-26 08:00 | NUR ---
RAILROAD TRACK INSPECTOR NOTES Received Patient in bed, A/O x3. Stable oxygen saturation on RA. Sinus rhythm in the Tele monitor. NPO, IVF maintained. Right arm with sling in place, supported RLE with pillow when repositioning. will continue to monitor.
[2019-06-26 08:13] LABS: BASOPHILS # (AUTO) 0.1 /CMM (0.0-0.2); HEMATOCRIT 32 % (33-45); HEMOGLOBIN 10.8 g/dL (11.5-14.8); LYMPHOCYTES # (AUTO) 0.7 /CMM (0.8-4.8); LYMPHOCYTES % (AUTO) 6.5 % (20.0-44.0); MEAN CORPUSCULAR HGB CONC 34 g/dl (31.0-36.0); MEAN CORPUSCULAR VOLUME 92 fL (82-100); MONOCYTES # (AUTO) 0.5 /CMM (0.1-1.30); MONOCYTES % (AUTO) 4.3 % (2.0-12.0); NEUTROPHILS # (AUTO) 9.5 /CMM (1.8-8.9); NEUTROPHILS % (AUTO) 88.2 % (43.0-81.0); PLATELET COUNT (AUTO) 240 /CMM (150-450); RED BLOOD CELL COUNT(AUTO) 3.47 MIL/uL (4.0-5.2); WHITE BLOOD COUNT (AUTO) 10.8 K/uL (4.3-11.0)
[2019-06-26 08:32] LABS: ALBUMIN 3.2 g/dL (3.4-5.0); BILIRUBIN,TOTAL 0.4 mg/dL (0.2-1.0); CALCIUM, SERUM 8.9 mg/dL (8.5-10.1); CREATININE 1.1 mg/dL (0.6-1.3); POTASSIUM 4.2 mmol/L (3.5-5.1); TOTAL PROTEIN, SERUM 6.7 g/dL (6.4-8.2)
[2019-06-26] MEDS ORDERED: PARICALCITOL 1 MCG PO SCH (09:00)
[2019-06-26] MEDS ORDERED: Medication Not On Formulary EA (Olmesartan Medoxomil (Benicar) 20 MG) PO SCH (09:00)
[2019-06-26 09:01] LABS: THYROID STIMULATING HORMONE 0.614 uIU/mL (0.358-3.74)
--- NOTE | 2019-06-26 09:42 | NUR ---
CLUTCH SPECIALIST NOTES RECEIVED ORDER FROM DR. AGUIRRE EKG AND CXR.
[2019-06-26] MEDS: POTASSIUM CHLORIDE 10 MEQ TABLET.SA PO SCH (10:12)
[2019-06-26] MEDS: FUROSEMIDE 20 MG TABLET PO SCH (10:12)
[2019-06-26] MEDS: AMLODIPINE BESYLATE 5 MG TABLET PO SCH (10:13)
[2019-06-26] MEDS ORDERED: ANESTHESIA TRAY IN PYXIS 1 EA TRAY MC ONE (13:26)
[2019-06-26] MEDS ORDERED: BUPIVACAINE 0.5 % PF 150 MG/30 ML VIAL ONE (13:26)
[2019-06-26] MEDS ORDERED: BACITRACIN 50000 UNITS/VIAL ONE (13:27)
--- NOTE | 2019-06-26 14:20 | NUR ---
CHAIRLIFT OPERATOR NOTES PATIENT BLUE BEADED BRACELET WITH WHITE CROSS WAS GIVEN TO CLAUDIO.
[2019-06-26] MEDS ORDERED: VANCOMYCIN 1 GM VIAL ONE (16:20)
[2019-06-26] MEDS ORDERED: MIDAZOLAM HCL 2 MG/2ML VIAL ONE (16:32)
[2019-06-26] MEDS ORDERED: FENTANYL PF 250MCG/5ML AMPUL ONE (16:33)
[2019-06-26] MEDS ORDERED: FAMOTIDINE/PF INJ 20 MG/2 ML VIAL IV ONE (16:33)
[2019-06-26] MEDS ORDERED: ROCURONIUM BROMIDE 50 MG/5 ML ONE (16:34)
--- NOTE | 2019-06-26 16:37 | NUR ---
RISK LEAD NOTES PATIENT WAS OUT IN THE UNIT FOR SURGERY.
--- NOTE | 2019-06-26 16:49 | NUR ---
TELE/RN NOTE ORTHOSTATIC BLOOD PRESSURE UNABLE TO DUE TO PATIENT IN BEDREST AND UNABLE TO MOVE.
[2019-06-26] MEDS ORDERED: BUPIVACAINE 0.25% 75 MG/30 ML VIAL ONE (18:51)
--- NOTE | 2019-06-26 19:11 | NUR ---
CHANGED OF SHIFT REPORT Patient OFF unit.
[2019-06-26] MEDS ORDERED: HYDROMORPHONE 1 MG/1 ML DISP.SYRIN ONE (20:04)
[2019-06-26] MEDS ORDERED: hydrALAZINE HCL IV 20 MG VIAL ONE (20:28)
[2019-06-26] MEDS ORDERED: IV LR 1000 ML 1,000 ML IV PRN (20:30)
[2019-06-26 21:42] LABS: HEMOGLOBIN 11.8 g/dL (11.5-14.8)
--- NOTE | 2019-06-26 22:28 | NUR ---
CLARIFICATION ORDER FOR CEFAZOLIN Postop orders Cefazolin 1gm q8H [id number]. Orders not in patient profile postop, called MD spoke with EDUARD Koehler reviewed patients allergies to medication with PA. Clarification of orders, do not give Cefazolin as prophylaxis, continue Vancomycin as ordered, per EDUARD Koehler.
--- NOTE | 2019-06-26 22:43 | NUR ---
Met with patient and family at bedside. Primary language is German.She lives locally with her niece Amarilys in a two story condo with stairs access but family plan to put a chairlift. Prior to admission, she was ambulating with a cane and requires min assist with adl's. She own a cane, walker, wheelchair and home O2. She receives 130 hours of [facility] caregiver and has good family support. She was on service with [employer] [facility] [employer] . Pcp is Dr. Ervin in [place]. Patient had hip surgery done today, [facility] Awaiting PT eval and referral to ARU. Addendum: 06/26/19 at 2245 by ELDER WALLER RN Amended: Links added.
[2019-06-27] VITALS (7 sets, daily range): BP systolic 120–151; BP diastolic 51–93
[2019-06-27] MEDS: VANCOMYCIN 1 GM in IV D5W 250ml IV SCH ×2 (01:13→13:13)
[2019-06-27] MEDS: HYDROCODONE/APAP 5/325MG 1 EACH TABLET PO PRN ×2 (02:05→05:26)
--- NOTE | 2019-06-27 06:32 | NUR ---
END OF SHIFT REPORT Patient in bed, A/O x3. Sinus rhythm in the Tele monitor. Right hip dressing intact, pain controlled with PRN [place]. Abduction device in between legs, SCD in place. Right arm with sling. Maintained IVF, IV antibiotic as scheduled. Fall precaution maintained.
[2019-06-27 07:06] LABS: BASOPHILS % (AUTO) 0.1 % (0.0-2.0); HEMATOCRIT 32 % (33-45); HEMOGLOBIN 10.7 g/dL (11.5-14.8); LYMPHOCYTES # (AUTO) 0.5 /CMM (0.8-4.8); LYMPHOCYTES % (AUTO) 4.4 % (20.0-44.0); MEAN CORPUSCULAR HGB CONC 34 g/dl (31.0-36.0); MEAN CORPUSCULAR VOLUME 92 fL (82-100); MONOCYTES # (AUTO) 0.7 /CMM (0.1-1.30); MONOCYTES % (AUTO) 6.6 % (2.0-12.0); NEUTROPHILS # (AUTO) 9.9 /CMM (1.8-8.9); NEUTROPHILS % (AUTO) 88.9 % (43.0-81.0); PLATELET COUNT (AUTO) 277 /CMM (150-450); RED BLOOD CELL COUNT(AUTO) 3.45 MIL/uL (4.0-5.2); WHITE BLOOD COUNT (AUTO) 11.2 K/uL (4.3-11.0)
[2019-06-27 07:36] LABS: ALBUMIN 3.1 g/dL (3.4-5.0); BILIRUBIN,TOTAL 0.6 mg/dL (0.2-1.0); CALCIUM, SERUM 8.8 mg/dL (8.5-10.1); CREATININE 1.1 mg/dL (0.6-1.3); PHOSPHORUS 3.6 mg/dL (2.5-4.9); POTASSIUM 4.3 mmol/L (3.5-5.1); TOTAL PROTEIN, SERUM 6.7 g/dL (6.4-8.2)
[2019-06-27] MEDS: PANTOPRAZOLE 40 MG TABLET.DR PO SCH (10:07)
[2019-06-27] MEDS: POTASSIUM CHLORIDE 10 MEQ TABLET.SA PO SCH (10:07)
[2019-06-27] MEDS: AMLODIPINE BESYLATE 5 MG TABLET PO SCH (10:09)
[2019-06-27] MEDS: FUROSEMIDE 20 MG TABLET PO SCH (10:10)
[2019-06-27] MEDS: HYDROCODONE/APAP 10/325MG 1 EA TABLET PO PRN ×2 (11:11→21:52)
--- NOTE | 2019-06-27 13:00 | NUR ---
TELE/RN NOTE THE PATIENT REFUSED ABG TO BE DONE DESPITE EXPLAINING RISKS AND BENEFITS MULTIPLE TIMES. TURRET LATHE SET UP OPERATOR CORYTIAK IS MADE AWARE AND PER TURRET LATHE SET UP OPERATOR NO NEED TO DO ABG FOR THE PATIENT. RT IS MADE AWARE.
[2019-06-27] MEDS ORDERED: APIXABAN 5 MG TABLET PO SCH (17:00)
[2019-06-27] MEDS: APIXABAN 2.5 MG TABLET PO SCH (17:30)
--- NOTE | 2019-06-27 18:24 | NUR ---
TELE/RN CLOSING NOTES Patient in bed, A/O x3. Sinus rhythm 93b/min with BBB and occasional PVC. no respiratory distress at this time. denies pain at this time Right hip dressing intact, abductor pillow in place at all times per order. right arm sling in place at all time per order. Patient denies tingling or numbness in the extremities. No apparent s/s poor circulation noted. skin warm to touch and the patient`s feels tactile sensation. SCD in place. Left hand g 22 iv patent and saline locked at this time. IV antibiotic given as as scheduled and no adverse side effects noted. Bed low and locked. Side rails up x3. Fall precaution maintained. Call light within reach. Will endorsed to shift supervisor melting.
--- NOTE | 2019-06-27 19:19 | NUR ---
TELE/RN NOTES RECEIVED PATIENT IN BED AWAKE ALERT AND ORIENTED X 3. NO RESPIRATORY DISTRESS, ON TELE MONITOR OF SINUS RHYTHM, PATIENT IS IN PAIN RATING OF 8. BED IS LOW WITH SIDE RAILS UP X2. IV LINE IS IN PLACE INTACT AND PATENT, KEPT PATIENT DRY AND IN COMFORTABLE POSITION. WILL CONTINUE TO MONITOR.
--- NOTE | 2019-06-27 19:50 | NUR ---
BRICKLAYER HELPER NOTE: PATIENT RESTING IN BED, NO ACUTE DISTRESS NOTED. BREATHING EVEN AND UNLABORED, NO SOB NOTED. IV TO LEFT HAND IN PLACE. LIN CATHETER IN PLACE, EMPTY AT THIS TIME. ABDUCTOR PILLOW IN PLACE. SLING TO RIGHT IN PLACE. BED LOCKED AND IN LOWEST POSITION, CALL LIGHT IN REACH. WILL CONTINUE TO MONITOR.
[2019-06-27] MEDS: ACETAMINOPHEN 325 MG TABLET PO PRN (20:14)
--- NOTE | 2019-06-27 22:00 | NUR ---
MARKETING OPERATIONS ASSISTANT NOTE: PATIENT COMPLAINS OF PAIN TO RIGHT SHOULDER 03/04, NORCO 10/325MG 1 TAB ORAL GIVEN PER MD ORDER. WILL CONTINUE TO MONITOR.
[2019-06-28] VITALS: BP 150/90
[2019-06-28 04:00] VITALS: BP 147/74
--- NOTE | 2019-06-28 06:45 | NUR ---
COMPUTATIONAL BIOLOGIST NOTE: PATIENT RESTING IN BED, NO ACUTE DISTRESS NOTED. BREATHING EVEN AND UNLABORED, NO SOB NOTED. IV TO LEFT HAND IN PLACE. LIN CATHETER IN PLACE, DRAINED 350ML OF CLEAR YELLOW URINE. ABDUCTOR PILLOW IN PLACE. SLING TO RIGHT IN PLACE. BED LOCKED AND IN LOWEST POSITION, CALL LIGHT IN REACH. WILL ENDORSE TO DAY NURSE TO CONTINUE WITH PLAN OF CARE.
--- NOTE | 2019-06-28 07:00 | NUR ---
Tele/RN Opening Note Received Patient AO x 3, complain of pain on right shoulder and will give narco 10/325mg on due time, skin is warm to touch, kept intact IV site. Respiratory even and unlabored, O2sat 94% in room air. call light within reach, will continue to monitor.
[2019-06-28] MEDS: PANTOPRAZOLE 40 MG TABLET.DR PO SCH (07:51)
[2019-06-28 08:00] VITALS: BP 148/74
[2019-06-28] MEDS: APIXABAN 2.5 MG TABLET PO SCH ×2 (08:48→17:20)
[2019-06-28] MEDS: BENAZEPRIL HCL 20 MG TABLET PO SCH (08:48)
[2019-06-28] MEDS: AMLODIPINE BESYLATE 5 MG TABLET PO SCH (08:49)
[2019-06-28] MEDS: HYDROCODONE/APAP 10/325MG 1 EA TABLET PO PRN ×3 (08:49→22:17)
[2019-06-28] MEDS: FUROSEMIDE 20 MG TABLET PO SCH (08:49)
[2019-06-28] MEDS: POTASSIUM CHLORIDE 10 MEQ TABLET.SA PO SCH (08:50)
[2019-06-28 12:00] VITALS: BP 140/78
[2019-06-28 13:35] LABS: CALCIUM, SERUM 8.8 mg/dL (8.5-10.1); CREATININE 1.2 mg/dL (0.6-1.3)
[2019-06-28 13:46] LABS: BASOPHILS % (AUTO) 0.3 % (0.0-2.0); EOSINOPHILS % (AUTO) 0.3 % (0.0-6.0); HEMATOCRIT 27 % (33-45); HEMOGLOBIN 8.9 g/dL (11.5-14.8); LYMPHOCYTES % (AUTO) 8.7 % (20.0-44.0); MEAN CORPUSCULAR HGB CONC 33 g/dl (31.0-36.0); MEAN CORPUSCULAR VOLUME 94 fL (82-100); MONOCYTES # (AUTO) 1.4 /CMM (0.1-1.30); MONOCYTES % (AUTO) 11.7 % (2.0-12.0); NEUTROPHILS # (AUTO) 9.4 /CMM (1.8-8.9); PLATELET COUNT (AUTO) 204 /CMM (150-450); RED BLOOD CELL COUNT(AUTO) 2.92 MIL/uL (4.0-5.2); WHITE BLOOD COUNT (AUTO) 11.9 K/uL (4.3-11.0)
[2019-06-28 16:00] VITALS: BP 141/60
--- NOTE | 2019-06-28 18:13 | NUR ---
MS/RN Closing note Pt is in bed comfortably, family member at bed side. No further c/o pain right shoulder at this time. Skin is warm to touch, respiratory even and unlabored. Will continue to monitor.
[2019-06-28 20:00] VITALS: BP 150/65
--- NOTE | 2019-06-28 20:50 | NUR ---
RN NOTES PM SHIFT\ PATIENT ALERT AND ORIENTED X3, CALM, FORGETFUL, SPEAKS [place] ONLY, NOT IN APPARENT PAIN, S/P RIGHT HIP HEMIARTHROPLASTY, DRESSING DRY AND INTACT, RIGHT ARM FRACTURE SECURED WITH SLING, DENIES NUMBNESS, FINGERS ARE WARM TO TOUCH, BRISK CAPILLARY REFILL, WITH CONFUSION AT NIGHT, FALL PRECAUTION, BED ALARM, KEPT SAFE, CALL LIGHT WITHIN REACH.
--- NOTE | 2019-06-29 06:39 | NUR ---
RN NOTES PM SHIFT PATIENT ALERT AND ORIENTED X3, ON ROOM AIR, S/P RIGHT HIP HEMIARTHROPLASTY, COMPLAINED OF PAIN TO RIGHT SHOULDER, GIVEN NORCO 10/325 1 TAB X1 WITH ADEQUATE RELIEF, LIN CATHETER DRAINING WELL, FOR TRANSFER TO [facility]
[2019-06-29] MEDS: HYDROCODONE/APAP 10/325MG 1 EA TABLET PO PRN ×3 (06:57→20:47)
[2019-06-29] MEDS: PANTOPRAZOLE 40 MG TABLET.DR PO SCH (06:57)
--- NOTE | 2019-06-29 07:10 | NUR ---
MS RN OPENING NOTES RECEIVED PATIENT ASLEEP IN BED. AROUSABLE TO VERBAL AND TACTILE STIMULI. HOB ELEVATED. NO SOB. DENIES ANY C/O PAIN NOR DISCOMFORT AT THIS TIME. RT HIP SX DRESSING IN PLACE. LEFT HAND # 20 INTACT AND PATENT. ABDUCTOR PILLOWS IN PLACE. BED IN LOWEST POSITION ,LOCKED. BED ALARM ON. CALL LIGHT WITHIN REACH. IN NO APPARENT DISTRESS.
[2019-06-29 07:29] LABS: BASOPHILS % (AUTO) 0.4 % (0.0-2.0); EOSINOPHILS % (AUTO) 0.7 % (0.0-6.0); HEMATOCRIT 25 % (33-45); HEMOGLOBIN 8.3 g/dL (11.5-14.8); LYMPHOCYTES # (AUTO) 1.6 /CMM (0.8-4.8); LYMPHOCYTES % (AUTO) 13.4 % (20.0-44.0); MEAN CORPUSCULAR HGB CONC 34 g/dl (31.0-36.0); MEAN CORPUSCULAR VOLUME 93 fL (82-100); MONOCYTES # (AUTO) 1.4 /CMM (0.1-1.30); MONOCYTES % (AUTO) 12.1 % (2.0-12.0); NEUTROPHILS # (AUTO) 8.5 /CMM (1.8-8.9); NEUTROPHILS % (AUTO) 73.4 % (43.0-81.0); PLATELET COUNT (AUTO) 216 /CMM (150-450); RED BLOOD CELL COUNT(AUTO) 2.67 MIL/uL (4.0-5.2); WHITE BLOOD COUNT (AUTO) 11.6 K/uL (4.3-11.0)
[2019-06-29 07:58] LABS: CALCIUM, SERUM 8.8 mg/dL (8.5-10.1); CREATININE 1.2 mg/dL (0.6-1.3)
[2019-06-29 08:00] VITALS: BP 138/50
[2019-06-29] MEDS: POTASSIUM CHLORIDE 10 MEQ TABLET.SA PO SCH (08:42)
[2019-06-29] MEDS: FUROSEMIDE 20 MG TABLET PO SCH (08:42)
[2019-06-29] MEDS: APIXABAN 2.5 MG TABLET PO SCH ×2 (08:43→17:59)
[2019-06-29] MEDS: AMLODIPINE BESYLATE 5 MG TABLET PO SCH (08:45)
[2019-06-29] MEDS: BENAZEPRIL HCL 20 MG TABLET PO SCH (08:45)
--- NOTE | 2019-06-29 08:46 | NUR ---
MS RN NOTES HELD B/P MEDS, B/P 128/57
[2019-06-29] MEDS: ACETAMINOPHEN 325 MG TABLET PO PRN (08:48)
[2019-06-29] MEDS ORDERED: AMLO5TAB9 PO (11:48)
[2019-06-29] MEDS ORDERED: Hydrocodone/Apap 10/325MG PO (11:53)
[2019-06-29 16:00] VITALS: BP 135/66
--- NOTE | 2019-06-29 19:04 | NUR ---
MS RN CLOSING NOTES PATIENT RESTING COMFORTABLY IN BED. HOB ELEVATED. NO SOB. DENIES ANY C/O PAIN NOR DISCOMFORT AT THIS TIME. RT HIP SX DRESSING IN PLACE. REPORT GIVEN TO LIA MILLER AT [facility]. AMBULANCE TRANSPORT P/U AROUND 830PM. DISCHARGE INSTRUCTIONS GIVEN TO ANGELA. ABDUCTOR PILLOWS IN PLACE. BED IN LOWEST POSITION ,LOCKED. BED ALARM ON. CALL LIGHT WITHIN REACH. IN NO APPARENT DISTRESS.
--- NOTE | 2019-06-29 19:05 | NUR ---
MS RN NOTES RECEIVED PT IN BED RESTING COMFORTABLY. PT WITH HOB ELEVATED. RESPIRATIONS EVEN AND UNLABORED WITH NO SOB NOTED. DENIES ANY C/O PAIN NOR DISCOMFORT AT THIS TIME. RT HIP SX DRESSING IN PLACE. PT AWAITING TRANSPORT AMBULANCE AROUND 830PM. ABDUCTOR PILLOWS IN PLACE. BED IN LOWEST, LOCKED, POSITION. CALL LIGHT WITHIN REACH. WILL CONTINUE TO MONITOR.
[2019-06-29 20:42] VITALS: BP 144/78
--- NOTE | 2019-06-29 21:05 | NUR ---
MS BRASS CLEANER NOTES PT LEFT UNIT ON GURNEY VIA AMBULANCE IN STABLE CONDITION. PT A/O YORUBA SPEAKING. RESPIRATIONS EVEN AND UNLABORED WITH NO S/S OF ACUTE DISTRESS OR SOB NOTED. PT COMPLAINED OF PAIN NORCO GIVEN AMBULANCE MADE AWARE. RT HIP SX DRESSING IN PLACE. DISCHARGE INSTRUCTIONS GIVEN TO PT AND FAMILY, BOTH VERBALIZED UNDERSTANDING. WENT OVER BELONGINGS LIST PT AND FAMILY DENIED ANY MISSING ITEMS. IV REMOVED WITH NO BLEEDING. DISCHARGE PAPERS GIVEN TO AMBULANCE.
== END 2019-06-29 21:05 | DRG 470 ==
LOC: ER 23:05 → TELE 06-26 02:16 → MED 06-26 08:51 → TELE 06-26 13:43 → MED 06-27 10:20 → TELE 06-27 10:28 → MED 06-28 08:39
PROVIDERS: ADMIT Nurse Practitioner Acute Care; ATTEND Nurse Practitioner Acute Care
PROC: 0SRR0JZ Replacement of Right Hip Joint, Femoral Surface with Synthetic Substitute, Open Approach (ICD-10-PCS; principal; 2019-06-26)
DX: S72.001A Fracture of unspecified part of neck of right femur, initial encounter for closed fracture (principal); S42.291A Other displaced fracture of upper end of right humerus, initial encounter for closed fracture; E44.1 Mild protein-calorie malnutrition; D68.59 Other primary thrombophilia; I13.0 Hypertensive heart and chronic kidney disease with heart failure and stage 1 through stage 4 chronic kidney disease, or unspecified chronic kidney disease; I50.32 Chronic diastolic (congestive) heart failure; E87.1 Hypo-osmolality and hyponatremia; J98.11 Atelectasis; M25.011 Hemarthrosis, right shoulder; W18.30XA Fall on same level, unspecified, initial encounter; I48.91 Unspecified atrial fibrillation; I10 Essential (primary) hypertension; Y92.9 Unspecified place or not applicable; I87.2 Venous insufficiency (chronic) (peripheral); M19.90 Unspecified osteoarthritis, unspecified site; N18.3 Chronic kidney disease, stage 3 (moderate); E78.5 Hyperlipidemia, unspecified; Z88.1 Allergy status to other antibiotic agents; Z88.2 Allergy status to sulfonamides; Z79.899 Other long term (current) drug therapy; I70.0 Atherosclerosis of aorta; M10.9 Gout, unspecified; I83.90 Asymptomatic varicose veins of unspecified lower extremity; I48.0 Paroxysmal atrial fibrillation; E03.9 Hypothyroidism, unspecified; Z79.01 Long term (current) use of anticoagulants; I95.1 Orthostatic hypotension
CPT/HCPCS: 36415; 70450-TC; 71045-TC; 72192-TC; 73030-TC; 73080-TC; 73200-TC; 73502; 80048-TC; 80053-TC; 80061-TC; 84100-TC; 84443-TC; 84484-TC; 85025-TC; 85027-TC; 85610-TC; 86850-TC; 87081-TC; 88305-TC; 88311-TC; 94799-TC; 97110-TC; 97530-TC; A4217; A6209; C1713; C1776; G0378; J0360; J1100; J1170; J2250; J2270; J2704; J2710; J2765; J3010; J3370; J3490; J7060; J7120; J8597

== ENCOUNTER 2020-05-04 11:15 | Outpatient (CLI) | payer MEDICARE, OTHER ==
[~2020-05-04 11:15] MED LIST changes: -ALLO300T2 PO; -ALPR0.255 PO; +AMLO-212 PO; -ATEN100T PO; +CETI-90 PO; -CLON0.1T PO; -COLC0.6T67 PO; -DIGO125T PO; +Hydrocodone/Apap 10/325MG PO
[2020-05-05 16:20] LABS: BILIRUBIN,URINE NEGATIVE (NEGATIVE); BLOOD, URINE NEGATIVE Ery/uL (NEGATIVE); COLOR,URINE YELLOW (YELLOW); LEUKOCYTE ESTERASE ,URINE SMALL (NEGATIVE); NITRITE, URINE NEGATIVE (NEGATIVE); PROTEIN,URINE NEGATIVE (NEGATIVE); UGLUCOSE NEGATIVE (NEGATIVE); UROBILINOGEN,URINE 0.2 EU/dL (0.2)
[2020-05-05 16:25] LABS: CREATININE, URINE 35.5 MG/DL (30.0-125.0); URINE TOTAL PROTEIN 7.6 mg/dL (0-11.9)
[2020-05-05 16:28] LABS: BACTERIA,URINE Few /HPF (None Seen); RBC,URINE NONE SEEN /HPF (0-2); SQUAMOUS EPITHELIAL CELL,UR Few /HPF (None Seen); WBC,URINE 0-2 /HPF (0-3)
== END 2020-05-04 23:59 | disposition home or self-care (01) ==
LOC: MSC 11:15
PROVIDERS: ATTEND Internal Medicine
DX: I13.0 Hypertensive heart and chronic kidney disease with heart failure and stage 1 through stage 4 chronic kidney disease, or unspecified chronic kidney disease (principal); N18.30 Chronic kidney disease, stage 3 unspecified; I50.9 Heart failure, unspecified; E83.9 Disorder of mineral metabolism, unspecified; M89.9 Disorder of bone, unspecified; D64.9 Anemia, unspecified; M10.9 Gout, unspecified; I48.91 Unspecified atrial fibrillation; M54.16 Radiculopathy, lumbar region; G47.00 Insomnia, unspecified; Z79.899 Other long term (current) drug therapy
CPT/HCPCS: 36415; 81001; 82043; 82570 ×2; 84155; G0463

== ENCOUNTER 2021-03-16 14:00 | Outpatient (CLI) | payer MEDICARE, OTHER | END 2021-03-16 23:59 | disposition home or self-care (01) | LOC: MSC 14:00 | PROVIDERS: ATTEND Internal Medicine | DX: R53.81 Other malaise (principal); I13.0 Hypertensive heart and chronic kidney disease with heart failure and stage 1 through stage 4 chronic kidney disease, or unspecified chronic kidney disease; N18.30 Chronic kidney disease, stage 3 unspecified; I50.9 Heart failure, unspecified; E83.9 Disorder of mineral metabolism, unspecified; M89.9 Disorder of bone, unspecified; D64.9 Anemia, unspecified; M10.9 Gout, unspecified; I48.91 Unspecified atrial fibrillation; M54.16 Radiculopathy, lumbar region; G47.00 Insomnia, unspecified; Z79.899 Other long term (current) drug therapy ==

== ENCOUNTER 2021-06-21 13:00 | Outpatient (CLI) | payer MEDICARE, OTHER | END 2021-06-21 23:59 | disposition home or self-care (01) | LOC: MSC 13:00 | PROVIDERS: ATTEND Internal Medicine | DX: R32 Unspecified urinary incontinence (principal); R25.1 Tremor, unspecified; I13.0 Hypertensive heart and chronic kidney disease with heart failure and stage 1 through stage 4 chronic kidney disease, or unspecified chronic kidney disease; N18.30 Chronic kidney disease, stage 3 unspecified; I50.9 Heart failure, unspecified; E83.9 Disorder of mineral metabolism, unspecified; M89.9 Disorder of bone, unspecified; D64.9 Anemia, unspecified; M10.9 Gout, unspecified; I48.91 Unspecified atrial fibrillation; M54.16 Radiculopathy, lumbar region; G47.00 Insomnia, unspecified; R53.81 Other malaise; Z79.899 Other long term (current) drug therapy ==

== ENCOUNTER → 2021-12-20 | Outpatient (CLI) | payer MEDICARE, OTHER | END | disposition home or self-care (01) | LOC: MSC 14:30 | PROVIDERS: ATTEND Internal Medicine | DX: R53.1 Weakness (principal); Z86.16 Personal history of COVID-19; I13.0 Hypertensive heart and chronic kidney disease with heart failure and stage 1 through stage 4 chronic kidney disease, or unspecified chronic kidney disease; N18.30 Chronic kidney disease, stage 3 unspecified; I50.9 Heart failure, unspecified; E83.9 Disorder of mineral metabolism, unspecified; M89.9 Disorder of bone, unspecified; R32 Unspecified urinary incontinence; R25.1 Tremor, unspecified; D64.9 Anemia, unspecified; M10.9 Gout, unspecified; I48.91 Unspecified atrial fibrillation; M54.16 Radiculopathy, lumbar region; G47.00 Insomnia, unspecified; R53.81 Other malaise; Z79.899 Other long term (current) drug therapy ==

== ENCOUNTER 2022-08-01 12:00 | Outpatient (CLI) | payer MEDICARE, OTHER | END 2022-08-01 23:59 | disposition home or self-care (01) | LOC: MSC 12:00 | PROVIDERS: ATTEND Internal Medicine | DX: I13.0 Hypertensive heart and chronic kidney disease with heart failure and stage 1 through stage 4 chronic kidney disease, or unspecified chronic kidney disease (principal); N18.30 Chronic kidney disease, stage 3 unspecified; I50.9 Heart failure, unspecified; E83.9 Disorder of mineral metabolism, unspecified; M89.9 Disorder of bone, unspecified; R32 Unspecified urinary incontinence; R25.1 Tremor, unspecified; D64.9 Anemia, unspecified; M10.9 Gout, unspecified; I48.91 Unspecified atrial fibrillation; M54.16 Radiculopathy, lumbar region; G47.00 Insomnia, unspecified; R53.81 Other malaise; Z86.16 Personal history of COVID-19 ==

== ENCOUNTER 2024-03-28 18:37 | Inpatient (IN) | payer MEDICARE, OTHER ==
[~2024-03-28] VITALS: Ht 152.4 cm; Wt 81.2 kg
[2024-03-28] MEDS ORDERED: DILTIAZEM HCL 50 MG IV ONE (19:19)
[2024-03-28] MEDS: DILTIAZEM HCL 50 MG IV IV ONE (19:26)
[2024-03-28] MEDS: IV NS 0.9% 1,000 ML BAG IV ONE (19:27)
[2024-03-28 19:38] LABS: BASOPHILS % (AUTO) 0.4 % (0.0-2.0); EOSINOPHILS # (AUTO) 0.2 K/uL (0.0-0.7); EOSINOPHILS % (AUTO) 2.1 % (0.0-6.0); HEMATOCRIT 36 % (33-45); HEMOGLOBIN 11.4 g/dL (11.5-14.8); LYMPHOCYTES # (AUTO) 1.5 K/uL (0.8-4.8); LYMPHOCYTES % (AUTO) 19.8 % (20.0-44.0); MEAN CORPUSCULAR HEMOGLOBIN 30 PG (26.0-33.0); MEAN CORPUSCULAR HGB CONC 32 g/dl (31.0-36.0); MEAN CORPUSCULAR VOLUME 95 fL (82-100); MONOCYTES # (AUTO) 0.6 K/uL (0.1-1.30); MONOCYTES % (AUTO) 7.7 % (2.0-12.0); NEUTROPHILS # (AUTO) 5.3 K/uL (1.8-8.9); PLATELET COUNT (AUTO) 161 K/uL (150-450); RED BLOOD CELL COUNT(AUTO) 3.81 MIL/uL (4.0-5.2); RED CELL DISTRIBUTION WIDTH 17.2 % (11.5-15.0); WHITE BLOOD COUNT (AUTO) 7.6 K/uL (4.3-11.0)
[2024-03-28 19:50] LABS: INR 1.39 (0.91-1.10); PARTIAL THROMBOPLASTIN TIME 33.4 SEC (24.3-34.3); PROTHROMBIN TIME 14.1 SECS (9.2-11.1)
[2024-03-28 19:55] LABS: LACTIC ACID 1.3 mmol/L (0.4-2.0)
[2024-03-28 19:59] LABS: CALCIUM, SERUM 9.4 mg/dL (8.5-10.1); CARBON DIOXIDE 21 mmol/L (21-32); CHLORIDE 105 mmol/L (98-107); CREATININE 1.3 mg/dL (0.6-1.3); GLUCOSE 139 mg/dL (74-106); POTASSIUM 4.4 mmol/L (3.5-5.1); SODIUM SERUM 136 mmol/L (136-145); UREA NITROGEN, BLOOD 24 mg/dL (7-18)
[2024-03-28 20:04] LABS: ALANINE AMINOTRANSFERASE 14 U/L (12-78); ALBUMIN 3.8 g/dL (3.4-5.0); ALKALINE PHOSPHATASE 79 U/L (46-116); ASPARTATE AMINOTRANSFERASE 19 U/L (15-37); BILIRUBIN,DIRECT 0.3 mg/dL (0.0-0.2)
[2024-03-28 20:56] LABS: APPEARANCE,URINE CLEAR (CLEAR); BILIRUBIN,URINE NEGATIVE (NEGATIVE); BLOOD, URINE TRACE-INTA Ery/uL (NEGATIVE); COLOR,URINE YELLOW (YELLOW); KETONES,URINE NEGATIVE (NEGATIVE); LEUKOCYTE ESTERASE ,URINE 1+ (NEGATIVE); NITRITE, URINE NEGATIVE (NEGATIVE); PROTEIN,URINE NEGATIVE (NEGATIVE); UGLUCOSE NEGATIVE (NEGATIVE); UROBILINOGEN,URINE 0.2 EU/dL (0.2)
[2024-03-28 21:08] LABS: ADD URINE CULTURE YES; BACTERIA,URINE None seen /HPF (None Seen); RBC,URINE 0-2 /HPF (0-2)
[2024-03-28] MEDS ORDERED: VALS160T29 PO (21:14)
[2024-03-28] MEDS ORDERED: Z GUARD REMEDY 4 OZ OINT TP PRN (21:30)
[2024-03-28] MEDS ORDERED: MAGNESIUM HYDROXIDE 30 ML UDC PO PRN (21:30)
[2024-03-28] MEDS ORDERED: MAG HYDROX/AL HYDROX/SIMETH 30 ML UDC PO PRN (21:30)
[2024-03-28] MEDS ORDERED: ONDANSETRON HCL/PF 4 MG/2 ML VIAL IVP PRN (21:30)
[2024-03-28] MEDS: ZOLPIDEM TARTRATE 5 MG TABLET PO PRN (23:44)
[2024-03-29] VITALS: BP 153/114; TEMP 97.9; O2SAT 96
[2024-03-29] MEDS: ENOXAPARIN SODIUM 40 MG/0.4 ML DISP.SYRIN SQ SCH (00:12)
[2024-03-29] MEDS ORDERED: DILTIAZEM HCL 25 MG IV ONE (00:34)
[2024-03-29] MEDS: DILTIAZEM HCL 50 MG IV IVP ONE (00:37)
[2024-03-29 04:00] VITALS: BP 127/108; TEMP 98.4; O2SAT 99
[2024-03-29 06:36] LABS: BASOPHILS % (AUTO) 0.3 % (0.0-2.0); EOSINOPHILS % (AUTO) 0.5 % (0.0-6.0); HEMATOCRIT 36 % (33-45); HEMOGLOBIN 11.3 g/dL (11.5-14.8); LYMPHOCYTES # (AUTO) 1.7 K/uL (0.8-4.8); LYMPHOCYTES % (AUTO) 20.4 % (20.0-44.0); MEAN CORPUSCULAR HEMOGLOBIN 30 PG (26.0-33.0); MEAN CORPUSCULAR HGB CONC 31 g/dl (31.0-36.0); MEAN CORPUSCULAR VOLUME 95 fL (82-100); MONOCYTES # (AUTO) 0.7 K/uL (0.1-1.30); MONOCYTES % (AUTO) 8.5 % (2.0-12.0); NEUTROPHILS # (AUTO) 5.8 K/uL (1.8-8.9); NEUTROPHILS % (AUTO) 70.3 % (43.0-81.0); PLATELET COUNT (AUTO) 159 K/uL (150-450); RED BLOOD CELL COUNT(AUTO) 3.79 MIL/uL (4.0-5.2); RED CELL DISTRIBUTION WIDTH 17.3 % (11.5-15.0); WHITE BLOOD COUNT (AUTO) 8.2 K/uL (4.3-11.0)
[2024-03-29 07:43] LABS: ALANINE AMINOTRANSFERASE 24 U/L (12-78); ALBUMIN 3.8 g/dL (3.4-5.0); ALKALINE PHOSPHATASE 97 U/L (46-116); ASPARTATE AMINOTRANSFERASE 34 U/L (15-37); BILIRUBIN,DIRECT 0.4 mg/dL (0.0-0.2); BILIRUBIN,TOTAL 1.1 mg/dL (0.2-1.0); CALCIUM, SERUM 9.3 mg/dL (8.5-10.1); CARBON DIOXIDE 22 mmol/L (21-32); CHLORIDE 109 mmol/L (98-107); CREATININE 1.1 mg/dL (0.6-1.3); GLUCOSE 121 mg/dL (74-106); NT-PRO BNP 16150 pg/mL (0-125); PHOSPHORUS 4.4 mg/dL (2.5-4.9); POTASSIUM 4.6 mmol/L (3.5-5.1); SODIUM SERUM 140 mmol/L (136-145); TOTAL PROTEIN, SERUM 7.4 g/dL (6.4-8.2); UREA NITROGEN, BLOOD 21 mg/dL (7-18)
[2024-03-29 08:00] VITALS: BP 139/75; TEMP 97.5; O2SAT 94
[2024-03-29] MEDS ORDERED: LEVO50TA8 PO (08:25)
[2024-03-29] MEDS ORDERED: ALLO300T2 PO (08:25)
[2024-03-29] MEDS ORDERED: MEMA7CAP2 PO (08:25)
[2024-03-29] MEDS ORDERED: PANT40TA2 PO (08:25)
[2024-03-29] MEDS ORDERED: APIXABAN 5 MG TABLET PO SCH (09:00)
[2024-03-29] MEDS ORDERED: Medication Not On Formulary EA (Memantine HCl (Memantine HCl ER) 7 MG) PO SCH (09:00)
[2024-03-29] MEDS: MEMANTINE HCL 5 MG TABLET PO SCH (09:07)
[2024-03-29] MEDS: ALLOPURINOL 100 MG TABLET PO SCH (09:08)
[2024-03-29] MEDS: APIXABAN 2.5 MG TABLET PO SCH (09:08)
[2024-03-29] MEDS: VALSARTAN 80 MG TABLET PO SCH (09:10)
[2024-03-29] MEDS: LEVOTHYROXINE SODIUM 50 MCG TABLET PO SCH (09:11)
[2024-03-29] MEDS: PANTOPRAZOLE 40 MG TABLET.DR PO SCH (09:11)
[2024-03-29 09:37] LABS: BASOPHILS % (AUTO) 0.5 % (0.0-2.0); EOSINOPHILS # (AUTO) 0.1 K/uL (0.0-0.7); EOSINOPHILS % (AUTO) 0.7 % (0.0-6.0); HEMATOCRIT 35 % (33-45); HEMOGLOBIN 11.1 g/dL (11.5-14.8); LYMPHOCYTES # (AUTO) 1.7 K/uL (0.8-4.8); LYMPHOCYTES % (AUTO) 22.8 % (20.0-44.0); MEAN CORPUSCULAR HEMOGLOBIN 30 PG (26.0-33.0); MEAN CORPUSCULAR HGB CONC 32 g/dl (31.0-36.0); MEAN CORPUSCULAR VOLUME 94 fL (82-100); MONOCYTES # (AUTO) 0.6 K/uL (0.1-1.30); MONOCYTES % (AUTO) 8.4 % (2.0-12.0); NEUTROPHILS # (AUTO) 5.1 K/uL (1.8-8.9); NEUTROPHILS % (AUTO) 67.6 % (43.0-81.0); PLATELET COUNT (AUTO) 169 K/uL (150-450); RED BLOOD CELL COUNT(AUTO) 3.68 MIL/uL (4.0-5.2); RED CELL DISTRIBUTION WIDTH 17.2 % (11.5-15.0); WHITE BLOOD COUNT (AUTO) 7.5 K/uL (4.3-11.0)
[2024-03-29 10:12] LABS: CALCIUM, SERUM 9.4 mg/dL (8.5-10.1); CARBON DIOXIDE 24 mmol/L (21-32); CHLORIDE 110 mmol/L (98-107); CREATININE 1.2 mg/dL (0.6-1.3); GLUCOSE 136 mg/dL (74-106); SODIUM SERUM 142 mmol/L (136-145); UREA NITROGEN, BLOOD 22 mg/dL (7-18)
[2024-03-29 10:17] LABS: ALANINE AMINOTRANSFERASE 21 U/L (12-78); ALBUMIN 3.7 g/dL (3.4-5.0); ALKALINE PHOSPHATASE 95 U/L (46-116); ASPARTATE AMINOTRANSFERASE 26 U/L (15-37); BILIRUBIN,TOTAL 1.2 mg/dL (0.2-1.0); MAGNESIUM 1.8 mg/dL (1.8-2.4); PHOSPHORUS 4.5 mg/dL (2.5-4.9); TOTAL PROTEIN, SERUM 7.2 g/dL (6.4-8.2)
[2024-03-29 12:00] VITALS: BP 140/70; TEMP 97.7; O2SAT 97
[2024-03-29] MEDS: DIGOXIN INJ 0.5 MG/2 ML AMPUL IV SCH (12:21)
[2024-03-29 16:00] VITALS: BP 143/92; TEMP 98; O2SAT 97
[2024-03-29] MEDS: ACETAMINOPHEN 325 MG TABLET PO PRN (18:23)
[2024-03-29 20:00] VITALS: BP 155/96; TEMP 98.3; O2SAT 97
[2024-03-30] VITALS: BP 149/80; TEMP 98.3; O2SAT 98
[2024-03-30 04:00] VITALS: BP 151/93; TEMP 98.4; O2SAT 98
[2024-03-30 05:50] LABS: BASOPHILS % (AUTO) 0.4 % (0.0-2.0); EOSINOPHILS # (AUTO) 0.2 K/uL (0.0-0.7); EOSINOPHILS % (AUTO) 2.8 % (0.0-6.0); HEMATOCRIT 35 % (33-45); LYMPHOCYTES # (AUTO) 1.2 K/uL (0.8-4.8); LYMPHOCYTES % (AUTO) 17.2 % (20.0-44.0); MEAN CORPUSCULAR HEMOGLOBIN 30 PG (26.0-33.0); MEAN CORPUSCULAR HGB CONC 32 g/dl (31.0-36.0); MEAN CORPUSCULAR VOLUME 94 fL (82-100); MONOCYTES # (AUTO) 0.6 K/uL (0.1-1.30); NEUTROPHILS # (AUTO) 4.9 K/uL (1.8-8.9); NEUTROPHILS % (AUTO) 71.6 % (43.0-81.0); PLATELET COUNT (AUTO) 141 K/uL (150-450); RED CELL DISTRIBUTION WIDTH 16.9 % (11.5-15.0); WHITE BLOOD COUNT (AUTO) 6.9 K/uL (4.3-11.0)
[2024-03-30 06:01] LABS: CALCIUM, SERUM 9.4 mg/dL (8.5-10.1); CARBON DIOXIDE 24 mmol/L (21-32); CHLORIDE 111 mmol/L (98-107); CREATININE 1.2 mg/dL (0.6-1.3); GLUCOSE 116 mg/dL (74-106); POTASSIUM 4.4 mmol/L (3.5-5.1); SODIUM SERUM 145 mmol/L (136-145); UREA NITROGEN, BLOOD 21 mg/dL (7-18)
[2024-03-30] MEDS: LEVOFLOXACIN 500 MG /D5W 100ML 500 MG in PREMIX 1 EA IV ONE (07:43)
[2024-03-30 08:09] VITALS: BP 116/40; TEMP 98.3; O2SAT 95
[2024-03-30] MEDS: DILTIAZEM HCL CD 240 MG PO SCH (08:52)
[2024-03-30] MEDS: POTASSIUM CHLORIDE 20 MEQ TAB.PRT.SR PO SCH (09:58)
[2024-03-30] MEDS: FUROSEMIDE 20 MG/2 ML VIAL IV SCH (09:59)
[2024-03-30] MEDS: FUROSEMIDE 40 MG/4 ML VIAL IV SCH (10:01)
[2024-03-30 12:20] VITALS: BP 149/80; TEMP 98.3; O2SAT 98
[2024-03-30] MEDS ORDERED: MAGNESIUM HYDROXIDE 30 ML UDC PO PRN (12:30)
[2024-03-30] MEDS: HYDROCODONE/APAP 5/325MG TABLET PO PRN (15:42)
[2024-03-30 16:05] VITALS: BP 116/74; TEMP 98.4; O2SAT 98
[2024-03-30 20:15] VITALS: BP 115/91; TEMP 98.4; O2SAT 98
[2024-03-31] VITALS (7 sets, daily range): BP systolic 106–171; BP diastolic 75–105; TEMP 97.7–99.1; O2SAT 95–99
[2024-03-31] MEDS: DILTIAZEM HCL 25 MG IV IV ONE (01:39)
[2024-03-31 05:06] LABS: FOLIC ACID 12.4 ng/mL (>3.0)
[2024-03-31 08:02] LABS: ALANINE AMINOTRANSFERASE 21 U/L (12-78); ALBUMIN 3.7 g/dL (3.4-5.0); ALKALINE PHOSPHATASE 88 U/L (46-116); ASPARTATE AMINOTRANSFERASE 32 U/L (15-37); BILIRUBIN,TOTAL 1.5 mg/dL (0.2-1.0); CALCIUM, SERUM 9.9 mg/dL (8.5-10.1); CARBON DIOXIDE 27 mmol/L (21-32); CHLORIDE 105 mmol/L (98-107); CREATININE 1.1 mg/dL (0.6-1.3); GLUCOSE 122 mg/dL (74-106); MAGNESIUM 1.8 mg/dL (1.8-2.4); PHOSPHORUS 4.1 mg/dL (2.5-4.9); POTASSIUM 5.2 mmol/L (3.5-5.1); SODIUM SERUM 143 mmol/L (136-145); TOTAL PROTEIN, SERUM 7.7 g/dL (6.4-8.2); UREA NITROGEN, BLOOD 23 mg/dL (7-18)
[2024-03-31 08:18] LABS: BASOPHILS # (AUTO) 0.1 K/uL (0.0-0.2); BASOPHILS % (AUTO) 0.5 % (0.0-2.0); EOSINOPHILS # (AUTO) 0.2 K/uL (0.0-0.7); EOSINOPHILS % (AUTO) 1.6 % (0.0-6.0); HEMATOCRIT 38 % (33-45); HEMOGLOBIN 12.2 g/dL (11.5-14.8); LYMPHOCYTES # (AUTO) 1.3 K/uL (0.8-4.8); MEAN CORPUSCULAR HEMOGLOBIN 30 PG (26.0-33.0); MEAN CORPUSCULAR HGB CONC 32 g/dl (31.0-36.0); MEAN CORPUSCULAR VOLUME 93 fL (82-100); MONOCYTES # (AUTO) 0.9 K/uL (0.1-1.30); MONOCYTES % (AUTO) 8.5 % (2.0-12.0); NEUTROPHILS # (AUTO) 7.7 K/uL (1.8-8.9); NEUTROPHILS % (AUTO) 76.4 % (43.0-81.0); PLATELET COUNT (AUTO) 183 K/uL (150-450); RED BLOOD CELL COUNT(AUTO) 4.08 MIL/uL (4.0-5.2); RED CELL DISTRIBUTION WIDTH 16.6 % (11.5-15.0)
[2024-03-31] MEDS: LEVOFLOXACIN 250 MG /D5W 50 ML 250 MG in PREMIX 1 EA IV SCH (08:57)
[2024-03-31] MEDS: FUROSEMIDE 100 MG/10 ML VIAL IV SCH (09:17)
[2024-03-31] MEDS ORDERED: LORAZEPAM 1 MG TABLET PO PRN (11:00)
[2024-03-31] MEDS: AMIODARONE 150 MG in IV D5W 100 ML IV ONE (11:23)
[2024-03-31] MEDS: AMIODARONE 450 MG in IV D5W 241 ML IV PRN (11:57)
[2024-04-01] VITALS: BP 117/81; TEMP 98.5; O2SAT 99
[2024-04-01 04:00] VITALS: BP 129/91; TEMP 98.2; O2SAT 97
[2024-04-01 07:38] LABS: BASOPHILS % (AUTO) 0.4 % (0.0-2.0); EOSINOPHILS # (AUTO) 0.1 K/uL (0.0-0.7); EOSINOPHILS % (AUTO) 0.8 % (0.0-6.0); HEMATOCRIT 42 % (33-45); HEMOGLOBIN 13.4 g/dL (11.5-14.8); LYMPHOCYTES # (AUTO) 1.3 K/uL (0.8-4.8); LYMPHOCYTES % (AUTO) 11.1 % (20.0-44.0); MEAN CORPUSCULAR HEMOGLOBIN 29 PG (26.0-33.0); MEAN CORPUSCULAR HGB CONC 32 g/dl (31.0-36.0); MEAN CORPUSCULAR VOLUME 92 fL (82-100); MONOCYTES # (AUTO) 1.1 K/uL (0.1-1.30); NEUTROPHILS # (AUTO) 9.3 K/uL (1.8-8.9); NEUTROPHILS % (AUTO) 78.7 % (43.0-81.0); PLATELET COUNT (AUTO) 244 K/uL (150-450); RED BLOOD CELL COUNT(AUTO) 4.54 MIL/uL (4.0-5.2); RED CELL DISTRIBUTION WIDTH 16.5 % (11.5-15.0); WHITE BLOOD COUNT (AUTO) 11.8 K/uL (4.3-11.0)
[2024-04-01 07:56] LABS: ALANINE AMINOTRANSFERASE 13 U/L (12-78); ALKALINE PHOSPHATASE 93 U/L (46-116); ASPARTATE AMINOTRANSFERASE 22 U/L (15-37); BILIRUBIN,TOTAL 2.1 mg/dL (0.2-1.0); CALCIUM, SERUM 10.5 mg/dL (8.5-10.1); CARBON DIOXIDE 37 mmol/L (21-32); CHLORIDE 98 mmol/L (98-107); CREATININE 1.4 mg/dL (0.6-1.3); GLUCOSE 142 mg/dL (74-106); MAGNESIUM 1.5 mg/dL (1.8-2.4); PHOSPHORUS 4.4 mg/dL (2.5-4.9); POTASSIUM 4.5 mmol/L (3.5-5.1); SODIUM SERUM 143 mmol/L (136-145); TOTAL PROTEIN, SERUM 8.4 g/dL (6.4-8.2); UREA NITROGEN, BLOOD 30 mg/dL (7-18)
[2024-04-01 08:00] VITALS: BP 121/92; TEMP 98.8; O2SAT 100
[2024-04-01] MEDS: Magnesium 1GM/D5W 100ML PREMIX 100 ML IV SCH (10:45)
[2024-04-01 12:00] VITALS: BP 130/72; TEMP 98.8; O2SAT 98
[2024-04-01 16:00] VITALS: BP 131/81; TEMP 99.1; O2SAT 98
[2024-04-01 17:20] LABS: ABG BASE EXCESS 7.3 mmol/L (-2.0-3.0); ABG OXYGEN SATURATION 97.4 % (94.0-98.0); ABG PCO2 44.5 mmHg (32.0-45.0); ABG PH 7.473 (7.350-7.450); ABG PO2 98.2 mmHg (83.0-108.0); ABG TOTAL HEMOGLOBIN 14.3 G/dL (12.0-16.0); COHb 1.3 % (0.5-1.5); O2Hb 96.1 % (94.0-97.0); SITE, ABG RIGHT BRACHIAL
[2024-04-01 20:00] VITALS: BP 117/94; TEMP 98.9; O2SAT 98
[2024-04-02] VITALS (12 sets, daily range): BP systolic 118–151; BP diastolic 55–129; TEMP 97.2–98.9; O2SAT 95–100
[2024-04-02] MEDS ORDERED: ENOXAPARIN SODIUM 80 MG/0.8 ML DISP.SYRIN SQ SCH (08:00)
[2024-04-02 08:37] LABS: BASOPHILS # (AUTO) 0.1 K/uL (0.0-0.2); BASOPHILS % (AUTO) 0.6 % (0.0-2.0); EOSINOPHILS # (AUTO) 0.1 K/uL (0.0-0.7); EOSINOPHILS % (AUTO) 0.8 % (0.0-6.0); HEMATOCRIT 41 % (33-45); HEMOGLOBIN 13.4 g/dL (11.5-14.8); LYMPHOCYTES # (AUTO) 1.4 K/uL (0.8-4.8); LYMPHOCYTES % (AUTO) 11.6 % (20.0-44.0); MEAN CORPUSCULAR HEMOGLOBIN 30 PG (26.0-33.0); MEAN CORPUSCULAR HGB CONC 33 g/dl (31.0-36.0); MEAN CORPUSCULAR VOLUME 91 fL (82-100); MONOCYTES # (AUTO) 1.1 K/uL (0.1-1.30); MONOCYTES % (AUTO) 9.3 % (2.0-12.0); NEUTROPHILS # (AUTO) 9.6 K/uL (1.8-8.9); NEUTROPHILS % (AUTO) 77.7 % (43.0-81.0); PLATELET COUNT (AUTO) 167 K/uL (150-450); RED BLOOD CELL COUNT(AUTO) 4.49 MIL/uL (4.0-5.2); RED CELL DISTRIBUTION WIDTH 16.5 % (11.5-15.0); WHITE BLOOD COUNT (AUTO) 12.3 K/uL (4.3-11.0)
[2024-04-02] MEDS: ENOXAPARIN SODIUM 80 MG/0.8 ML DISP.SYRIN SQ SCH (10:03)
[2024-04-02 10:58] LABS: CALCIUM, SERUM 9.6 mg/dL (8.5-10.1); CARBON DIOXIDE 35 mmol/L (21-32); CHLORIDE 99 mmol/L (98-107); GLUCOSE 132 mg/dL (74-106); SODIUM SERUM 140 mmol/L (136-145); UREA NITROGEN, BLOOD 37 mg/dL (7-18)
[2024-04-02 10:59] LABS: CREATININE 1.3 mg/dL (0.6-1.3); MAGNESIUM 2.3 mg/dL (1.8-2.4)
[2024-04-03] VITALS (31 sets, daily range): BP systolic 106–167; BP diastolic 42–127; TEMP 97–98.8; O2SAT 96–100
[2024-04-03 08:18] LABS: CALCIUM, SERUM 9.9 mg/dL (8.5-10.1); CARBON DIOXIDE 37 mmol/L (21-32); CHLORIDE 99 mmol/L (98-107); CREATININE 1.5 mg/dL (0.6-1.3); GLUCOSE 117 mg/dL (74-106); POTASSIUM 3.7 mmol/L (3.5-5.1); SODIUM SERUM 145 mmol/L (136-145); UREA NITROGEN, BLOOD 48 mg/dL (7-18)
[2024-04-03 12:09] LABS: BASOPHILS % (AUTO) 0.2 % (0.0-2.0); EOSINOPHILS % (AUTO) 0.5 % (0.0-6.0); HEMATOCRIT 43 % (33-45); HEMOGLOBIN 13.8 g/dL (11.5-14.8); LYMPHOCYTES # (AUTO) 1.2 K/uL (0.8-4.8); MEAN CORPUSCULAR HEMOGLOBIN 30 PG (26.0-33.0); MEAN CORPUSCULAR HGB CONC 32 g/dl (31.0-36.0); MEAN CORPUSCULAR VOLUME 93 fL (82-100); MONOCYTES # (AUTO) 0.9 K/uL (0.1-1.30); MONOCYTES % (AUTO) 8.5 % (2.0-12.0); NEUTROPHILS # (AUTO) 8.1 K/uL (1.8-8.9); NEUTROPHILS % (AUTO) 78.8 % (43.0-81.0); PLATELET COUNT (AUTO) 234 K/uL (150-450); RED BLOOD CELL COUNT(AUTO) 4.63 MIL/uL (4.0-5.2); RED CELL DISTRIBUTION WIDTH 16.2 % (11.5-15.0); WHITE BLOOD COUNT (AUTO) 10.3 K/uL (4.3-11.0)
[2024-04-03 17:22] LABS: CALCIUM, SERUM 9.9 mg/dL (8.5-10.1); CARBON DIOXIDE 32 mmol/L (21-32); CHLORIDE 97 mmol/L (98-107); CREATININE 1.6 mg/dL (0.6-1.3); GLUCOSE 131 mg/dL (74-106); POTASSIUM 3.9 mmol/L (3.5-5.1); SODIUM SERUM 139 mmol/L (136-145); UREA NITROGEN, BLOOD 59 mg/dL (7-18)
[2024-04-03 17:52] LABS: BASOPHILS # (AUTO) 0.1 K/uL (0.0-0.2); BASOPHILS % (AUTO) 0.6 % (0.0-2.0); EOSINOPHILS # (AUTO) 0.1 K/uL (0.0-0.7); EOSINOPHILS % (AUTO) 0.7 % (0.0-6.0); HEMATOCRIT 42 % (33-45); HEMOGLOBIN 13.9 g/dL (11.5-14.8); LYMPHOCYTES # (AUTO) 2.3 K/uL (0.8-4.8); LYMPHOCYTES % (AUTO) 15.8 % (20.0-44.0); MEAN CORPUSCULAR HEMOGLOBIN 30 PG (26.0-33.0); MEAN CORPUSCULAR HGB CONC 33 g/dl (31.0-36.0); MEAN CORPUSCULAR VOLUME 91 fL (82-100); MONOCYTES # (AUTO) 1.6 K/uL (0.1-1.30); MONOCYTES % (AUTO) 10.8 % (2.0-12.0); NEUTROPHILS # (AUTO) 10.4 K/uL (1.8-8.9); NEUTROPHILS % (AUTO) 72.1 % (43.0-81.0); PLATELET COUNT (AUTO) 228 K/uL (150-450); RED CELL DISTRIBUTION WIDTH 16.1 % (11.5-15.0); WHITE BLOOD COUNT (AUTO) 14.4 K/uL (4.3-11.0)
[2024-04-03 18:08] LABS: ABG BASE EXCESS 7.3 mmol/L (-2.0-3.0); ABG OXYGEN SATURATION 99.4 % (94.0-98.0); ABG PCO2 49.7 mmHg (32.0-45.0); ABG PH 7.438 (7.350-7.450); ABG PO2 376.6 mmHg (83.0-108.0); ABG TOTAL HEMOGLOBIN 14.4 G/dL (12.0-16.0); COHb 0.5 % (0.5-1.5); MetHb 0.1 % (0.0-1.5); O2Hb 98.8 % (94.0-97.0); SITE, ABG LEFT RADIAL
[2024-04-04] VITALS (95 sets, daily range): BP systolic 105–172; BP diastolic 44–145; TEMP 97.4–99.8; O2SAT 91–100
[2024-04-04] MEDS: HYDROMORPHONE 1 MG/1 ML DISP.SYRIN IV PRN (01:01)
[2024-04-04 04:47] LABS: BASOPHILS % (AUTO) 0.3 % (0.0-2.0); EOSINOPHILS % (AUTO) 0.4 % (0.0-6.0); HEMATOCRIT 40 % (33-45); LYMPHOCYTES # (AUTO) 2.7 K/uL (0.8-4.8); LYMPHOCYTES % (AUTO) 22.6 % (20.0-44.0); MEAN CORPUSCULAR HEMOGLOBIN 30 PG (26.0-33.0); MEAN CORPUSCULAR HGB CONC 32 g/dl (31.0-36.0); MEAN CORPUSCULAR VOLUME 92 fL (82-100); MONOCYTES # (AUTO) 1.3 K/uL (0.1-1.30); MONOCYTES % (AUTO) 10.9 % (2.0-12.0); NEUTROPHILS # (AUTO) 7.8 K/uL (1.8-8.9); NEUTROPHILS % (AUTO) 65.8 % (43.0-81.0); PLATELET COUNT (AUTO) 240 K/uL (150-450); RED BLOOD CELL COUNT(AUTO) 4.38 MIL/uL (4.0-5.2); RED CELL DISTRIBUTION WIDTH 16.3 % (11.5-15.0); WHITE BLOOD COUNT (AUTO) 11.8 K/uL (4.3-11.0)
[2024-04-04 05:13] LABS: CALCIUM, SERUM 9.8 mg/dL (8.5-10.1); CARBON DIOXIDE 31 mmol/L (21-32); CHLORIDE 95 mmol/L (98-107); CREATININE 1.7 mg/dL (0.6-1.3); GLUCOSE 151 mg/dL (74-106); POTASSIUM 3.4 mmol/L (3.5-5.1); SODIUM SERUM 139 mmol/L (136-145); UREA NITROGEN, BLOOD 64 mg/dL (7-18)
[2024-04-04] MEDS ORDERED: POTASSIUM CL. PREMIX PERIPHER. 50 ML IV SCH (08:30)
[2024-04-04] MEDS: LIDOCAINE 100MG/5ML DISP SYR ONE (09:15)
[2024-04-04] MEDS: IV LIDOCAINE HCL/D5W/PF/500ML 2,000 MG in PREMIX 1 EA IV PRN (09:41)
[2024-04-04] MEDS: POTASSIUM CL. PREMIX PERIPHER. 50 ML IV SCH (10:00)
[2024-04-04] MEDS: Magnesium 1 GM/2 ML VIAL IV STA (10:17)
[2024-04-05] VITALS (94 sets, daily range): BP systolic 99–160; BP diastolic 44–105; TEMP 97.7–98.8; O2SAT 93–100
[2024-04-05 04:54] LABS: BASOPHILS % (AUTO) 0.2 % (0.0-2.0); EOSINOPHILS % (AUTO) 0.4 % (0.0-6.0); HEMATOCRIT 39 % (33-45); HEMOGLOBIN 12.5 g/dL (11.5-14.8); LYMPHOCYTES # (AUTO) 1.6 K/uL (0.8-4.8); LYMPHOCYTES % (AUTO) 16.2 % (20.0-44.0); MEAN CORPUSCULAR HEMOGLOBIN 29 PG (26.0-33.0); MEAN CORPUSCULAR HGB CONC 32 g/dl (31.0-36.0); MEAN CORPUSCULAR VOLUME 92 fL (82-100); MONOCYTES # (AUTO) 1.2 K/uL (0.1-1.30); MONOCYTES % (AUTO) 11.8 % (2.0-12.0); NEUTROPHILS # (AUTO) 7.2 K/uL (1.8-8.9); NEUTROPHILS % (AUTO) 71.4 % (43.0-81.0); PLATELET COUNT (AUTO) 224 K/uL (150-450); RED BLOOD CELL COUNT(AUTO) 4.26 MIL/uL (4.0-5.2); WHITE BLOOD COUNT (AUTO) 10.1 K/uL (4.3-11.0)
[2024-04-05 05:13] LABS: CALCIUM, SERUM 9.7 mg/dL (8.5-10.1); CARBON DIOXIDE 29 mmol/L (21-32); CHLORIDE 97 mmol/L (98-107); GLUCOSE 109 mg/dL (74-106); POTASSIUM 3.9 mmol/L (3.5-5.1); SODIUM SERUM 139 mmol/L (136-145); UREA NITROGEN, BLOOD 76 mg/dL (7-18)
[2024-04-05] MEDS: IV LR 1000 ML 1,000 ML IV ONE (10:05)
[2024-04-05] MEDS: IV LIDOCAINE HCL/D5W/PF/500ML 2,000 MG in PREMIX 1 EA IV PRN (11:55)
[2024-04-05 19:39] LABS: APPEARANCE,URINE CLEAR (CLEAR); BILIRUBIN,URINE NEGATIVE (NEGATIVE); BLOOD, URINE NEGATIVE Ery/uL (NEGATIVE); COLOR,URINE YELLOW (YELLOW); KETONES,URINE NEGATIVE (NEGATIVE); LEUKOCYTE ESTERASE ,URINE 1+ (NEGATIVE); NITRITE, URINE NEGATIVE (NEGATIVE); PH,URINE 5.5 (5.0-8.0); PROTEIN,URINE NEGATIVE (NEGATIVE); UGLUCOSE NEGATIVE (NEGATIVE); UROBILINOGEN,URINE 0.2 EU/dL (0.2)
[2024-04-05 19:42] LABS: RBC,URINE 0-2 /HPF (0-2)
[2024-04-05 19:43] LABS: ADD URINE CULTURE YES; BACTERIA,URINE 3+ /HPF (None Seen); SQUAMOUS EPITHELIAL CELL,UR 0-2 /HPF (None Seen)
[2024-04-05 19:49] LABS: CREATININE, URINE 89.8 MG/DL (30.0-125.0); URINE TOTAL PROTEIN 18.1 mg/dL (0-11.9)
[2024-04-05 20:19] LABS: EOSINOPHIL,URINE None Seen
[2024-04-06] VITALS (80 sets, daily range): BP systolic 95–169; BP diastolic 38–124; TEMP 97.7–98.8; O2SAT 92–99
[2024-04-06 05:31] LABS: BASOPHILS % (AUTO) 0.4 % (0.0-2.0); EOSINOPHILS # (AUTO) 0.1 K/uL (0.0-0.7); EOSINOPHILS % (AUTO) 0.5 % (0.0-6.0); HEMATOCRIT 37 % (33-45); HEMOGLOBIN 12.1 g/dL (11.5-14.8); LYMPHOCYTES # (AUTO) 1.8 K/uL (0.8-4.8); LYMPHOCYTES % (AUTO) 16.6 % (20.0-44.0); MEAN CORPUSCULAR HEMOGLOBIN 30 PG (26.0-33.0); MEAN CORPUSCULAR HGB CONC 33 g/dl (31.0-36.0); MEAN CORPUSCULAR VOLUME 93 fL (82-100); MONOCYTES # (AUTO) 1.2 K/uL (0.1-1.30); MONOCYTES % (AUTO) 10.9 % (2.0-12.0); NEUTROPHILS # (AUTO) 7.7 K/uL (1.8-8.9); NEUTROPHILS % (AUTO) 71.6 % (43.0-81.0); PLATELET COUNT (AUTO) 210 K/uL (150-450); RED BLOOD CELL COUNT(AUTO) 4.02 MIL/uL (4.0-5.2); RED CELL DISTRIBUTION WIDTH 15.5 % (11.5-15.0); WHITE BLOOD COUNT (AUTO) 10.8 K/uL (4.3-11.0)
[2024-04-06 05:58] LABS: ALANINE AMINOTRANSFERASE 19 U/L (12-78); ALBUMIN 2.8 g/dL (3.4-5.0); ALKALINE PHOSPHATASE 90 U/L (46-116); ASPARTATE AMINOTRANSFERASE 31 U/L (15-37); BILIRUBIN,TOTAL 0.8 mg/dL (0.2-1.0); CALCIUM, SERUM 9.4 mg/dL (8.5-10.1); CARBON DIOXIDE 32 mmol/L (21-32); CHLORIDE 105 mmol/L (98-107); CREATININE 1.4 mg/dL (0.6-1.3); GLUCOSE 115 mg/dL (74-106); MAGNESIUM 2.7 mg/dL (1.8-2.4); PHOSPHORUS 3.5 mg/dL (2.5-4.9); POTASSIUM 3.8 mmol/L (3.5-5.1); SODIUM SERUM 143 mmol/L (136-145); TOTAL PROTEIN, SERUM 6.8 g/dL (6.4-8.2); UREA NITROGEN, BLOOD 68 mg/dL (7-18)
[2024-04-06] MEDS ORDERED: LEVOFLOXACIN 250 MG /D5W 50 ML 250 MG in PREMIX 1 EA IV SCH (08:00)
[2024-04-06] MEDS: APIXABAN 2.5 MG TABLET PO SCH (10:20)
[2024-04-07] VITALS (28 sets, daily range): BP systolic 79–167; BP diastolic 52–146; TEMP 97.5–98.8; O2SAT 94–98
[2024-04-07 05:27] LABS: BASOPHILS % (AUTO) 0.4 % (0.0-2.0); EOSINOPHILS # (AUTO) 0.1 K/uL (0.0-0.7); EOSINOPHILS % (AUTO) 0.9 % (0.0-6.0); HEMATOCRIT 39 % (33-45); HEMOGLOBIN 12.7 g/dL (11.5-14.8); LYMPHOCYTES # (AUTO) 1.6 K/uL (0.8-4.8); LYMPHOCYTES % (AUTO) 17.6 % (20.0-44.0); MEAN CORPUSCULAR HEMOGLOBIN 30 PG (26.0-33.0); MEAN CORPUSCULAR HGB CONC 33 g/dl (31.0-36.0); MEAN CORPUSCULAR VOLUME 92 fL (82-100); MONOCYTES # (AUTO) 0.9 K/uL (0.1-1.30); MONOCYTES % (AUTO) 9.9 % (2.0-12.0); NEUTROPHILS # (AUTO) 6.6 K/uL (1.8-8.9); NEUTROPHILS % (AUTO) 71.2 % (43.0-81.0); PLATELET COUNT (AUTO) 235 K/uL (150-450); RED BLOOD CELL COUNT(AUTO) 4.24 MIL/uL (4.0-5.2); RED CELL DISTRIBUTION WIDTH 15.6 % (11.5-15.0); WHITE BLOOD COUNT (AUTO) 9.3 K/uL (4.3-11.0)
[2024-04-07 05:36] LABS: CALCIUM, SERUM 10.5 mg/dL (8.5-10.1); CARBON DIOXIDE 34 mmol/L (21-32); CHLORIDE 105 mmol/L (98-107); CREATININE 1.2 mg/dL (0.6-1.3); GLUCOSE 126 mg/dL (74-106); POTASSIUM 3.8 mmol/L (3.5-5.1); SODIUM SERUM 145 mmol/L (136-145); UREA NITROGEN, BLOOD 53 mg/dL (7-18)
[2024-04-07] MEDS: DIGOXIN INJ 0.5 MG/2 ML AMPUL IV SCH (08:58)
[2024-04-07] MEDS: POTASSIUM CL. PREMIX PERIPHER. 50 ML IV SCH (09:51)
[2024-04-07] MEDS: ENOXAPARIN SODIUM 80 MG/0.8 ML DISP.SYRIN SQ SCH (09:52)
[2024-04-08] VITALS (25 sets, daily range): BP systolic 133–175; BP diastolic 59–101; TEMP 98.6–100; O2SAT 95–100
[2024-04-08 04:46] LABS: BASOPHILS # (AUTO) 0.1 K/uL (0.0-0.2); BASOPHILS % (AUTO) 0.5 % (0.0-2.0); EOSINOPHILS % (AUTO) 0.4 % (0.0-6.0); HEMATOCRIT 42 % (33-45); HEMOGLOBIN 13.3 g/dL (11.5-14.8); LYMPHOCYTES # (AUTO) 1.5 K/uL (0.8-4.8); LYMPHOCYTES % (AUTO) 13.6 % (20.0-44.0); MEAN CORPUSCULAR HEMOGLOBIN 29 PG (26.0-33.0); MEAN CORPUSCULAR HGB CONC 31 g/dl (31.0-36.0); MEAN CORPUSCULAR VOLUME 92 fL (82-100); MONOCYTES # (AUTO) 0.9 K/uL (0.1-1.30); MONOCYTES % (AUTO) 8.1 % (2.0-12.0); NEUTROPHILS # (AUTO) 8.7 K/uL (1.8-8.9); NEUTROPHILS % (AUTO) 77.4 % (43.0-81.0); PLATELET COUNT (AUTO) 269 K/uL (150-450); RED BLOOD CELL COUNT(AUTO) 4.61 MIL/uL (4.0-5.2); RED CELL DISTRIBUTION WIDTH 15.8 % (11.5-15.0); WHITE BLOOD COUNT (AUTO) 11.3 K/uL (4.3-11.0)
[2024-04-08 05:19] LABS: ALANINE AMINOTRANSFERASE 16 U/L (12-78); ALKALINE PHOSPHATASE 87 U/L (46-116); ASPARTATE AMINOTRANSFERASE 26 U/L (15-37); BILIRUBIN,TOTAL 0.8 mg/dL (0.2-1.0); CARBON DIOXIDE 32 mmol/L (21-32); CHLORIDE 111 mmol/L (98-107); CREATININE 1.2 mg/dL (0.6-1.3); GLUCOSE 139 mg/dL (74-106); MAGNESIUM 2.4 mg/dL (1.8-2.4); POTASSIUM 4.7 mmol/L (3.5-5.1); SODIUM SERUM 151 mmol/L (136-145); TOTAL PROTEIN, SERUM 7.5 g/dL (6.4-8.2); UREA NITROGEN, BLOOD 43 mg/dL (7-18)
[2024-04-08] MEDS: IV D5W 500 ML IV PRN (09:11)
[2024-04-08] MEDS: METOPROLOL SUCCINATE 50 MG TAB.SR.24H PO SCH (10:30)
[2024-04-08] MEDS ORDERED: IV D5W 500 ML IV PRN (14:30)
[2024-04-09] VITALS (16 sets, daily range): BP systolic 109–167; BP diastolic 60–137; TEMP 98.6–101.7; O2SAT 96–100
[2024-04-09] MEDS: ALBUTEROL FS 2.5 MG/0.5 ML VIAL.NEB NEB PRN (03:21)
[2024-04-09] MEDS: ACETAMINOPHEN 650 MG/SUPP.RECT RC PRN (04:24)
[2024-04-09] MEDS ORDERED: MORPHINE SULFATE PF DRIP 100 MG in IV D5W 96 ML IV PRN (09:00)
[2024-04-09] MEDS: MORPHINE SULFATE INJ 2 MG/ML DISP.SYRIN IV PRN (09:11)
[2024-04-09] MEDS: MORPHINE SULFATE PF DRIP 100 MG in IV D5W 96 ML IV PRN (10:34)
[2024-04-09] MEDS: IV NS 0.9% 250 ML IV PRN (10:42)
== END 2024-04-09 20:47 ==
LOC: ER 18:40 → TELE1 22:18 → TELE-TD 03-31 11:00 → ICU 04-02 08:36 → TELE1 04-02 12:13 → TELE-TD 04-02 14:04 → ICU 04-03 17:08
PROVIDERS: ADMIT Nurse Practitioner Family; ATTEND Nurse Practitioner Acute Care
PROC: 5A2204Z Restoration of Cardiac Rhythm, Single (ICD-10-PCS; principal; 2024-04-07)
DX: I13.0 Hypertensive heart and chronic kidney disease with heart failure and stage 1 through stage 4 chronic kidney disease, or unspecified chronic kidney disease (principal); G93.41 Metabolic encephalopathy; I21.A1 Myocardial infarction type 2; I50.43 Acute on chronic combined systolic (congestive) and diastolic (congestive) heart failure; N39.0 Urinary tract infection, site not specified; F02.83 Dementia in other diseases classified elsewhere, unspecified severity, with mood disturbance; N17.9 Acute kidney failure, unspecified; F02.818 Dementia in other diseases classified elsewhere, unspecified severity, with other behavioral disturbance; E87.3 Alkalosis; I47.21 Torsades de pointes; E87.0 Hyperosmolality and hypernatremia; I48.91 Unspecified atrial fibrillation; E66.9 Obesity, unspecified; Z68.36 Body mass index [BMI] 36.0-36.9, adult; N18.30 Chronic kidney disease, stage 3 unspecified; G30.9 Alzheimer's disease, unspecified; Z66 Do not resuscitate; Z51.5 Encounter for palliative care; R13.10 Dysphagia, unspecified; M10.9 Gout, unspecified; Z88.2 Allergy status to sulfonamides; Z79.899 Other long term (current) drug therapy; Z88.1 Allergy status to other antibiotic agents; Z88.3 Allergy status to other anti-infective agents; Z79.01 Long term (current) use of anticoagulants; M89.8X9 Other specified disorders of bone, unspecified site; K21.9 Gastro-esophageal reflux disease without esophagitis; Z88.5 Allergy status to narcotic agent; Z88.6 Allergy status to analgesic agent; E03.9 Hypothyroidism, unspecified; I27.20 Pulmonary hypertension, unspecified; B96.89 Other specified bacterial agents as the cause of diseases classified elsewhere; R73.9 Hyperglycemia, unspecified; F39 Unspecified mood [affective] disorder; I49.01 Ventricular fibrillation; I87.2 Venous insufficiency (chronic) (peripheral); I83.90 Asymptomatic varicose veins of unspecified lower extremity; I42.9 Cardiomyopathy, unspecified; Z96.641 Presence of right artificial hip joint; Z87.81 Personal history of (healed) traumatic fracture; F09 Unspecified mental disorder due to known physiological condition; R62.7 Adult failure to thrive; R94.31 Abnormal electrocardiogram [ECG] [EKG]; T46.2X5A Adverse effect of other antidysrhythmic drugs, initial encounter; T36.8X5A Adverse effect of other systemic antibiotics, initial encounter; Y92.9 Unspecified place or not applicable; E86.0 Dehydration; E87.6 Hypokalemia
CPT/HCPCS: 36415; 70450-TC; 71045-TC; 80048-TC; 80053-TC; 80076-TC; 81001; 82570-TC; 82607-TC; 82962-TC; 83605-TC; 83735-TC; 83880; 83921; 84100-TC; 84300-TC; 84425; 84443-TC; 84484-TC; 85025-TC; 85730-TC; 87040-TC; 87086-TC; 92526; 92611-TC; 93307-TC; 93880-TC; 93971-TC; 94799-TC; 97110-TC; 97530-TC; A4216; A4223; G0378; J0282; J1160; J1171; J1650; J1940; J1956; J2002; J2003; J2270; J2274; J2704; J3475; J3480; J3490; J7030; J7040; J7050; J7060; J7120

== ENCOUNTER 2024-04-09 13:01 | Inpatient (IN) | payer OTHER ==
[~2024-04-09] VITALS: Ht 152.4 cm; Wt 76.2 kg
[~2024-04-09 13:01] MED LIST changes: +ALLO300T2 PO; +LEVO50TA8 PO; +MEMA7CAP2 PO; +PANT40TA2 PO; +VALS160T29 PO
[2024-04-09] MEDS ORDERED: ACETAMINOPHEN 650 MG/SUPP.RECT RC PRN (13:30)
[2024-04-09] MEDS: MORPHINE SULFATE PF DRIP 100 MG in IV D5W 96 ML IV PRN (14:35)
[2024-04-09 16:00] VITALS: BP 138/62; TEMP 98.1
[2024-04-09] MEDS: KEY,NONCONTROL,TO KEEP IN PYXI 1 EA MC ONE ×2 (18:38→22:57)
[2024-04-09] MEDS: MORPHINE SULFATE PF DRIP 250 MG in IV D5W 240 ML IV PRN (22:40)
[2024-04-10] VITALS: BP 138/62; TEMP 97
[2024-04-10 08:00] VITALS: BP 79/43; TEMP 97.6; O2SAT 92
== END 2024-04-10 08:29 | DRG 291 ==
LOC: HOSPICE1 13:01
PROVIDERS: ADMIT Internal Medicine; ATTEND Internal Medicine
DX: I13.0 Hypertensive heart and chronic kidney disease with heart failure and stage 1 through stage 4 chronic kidney disease, or unspecified chronic kidney disease (principal); G93.41 Metabolic encephalopathy; I50.23 Acute on chronic systolic (congestive) heart failure; R53.2 Functional quadriplegia; N39.0 Urinary tract infection, site not specified; E87.3 Alkalosis; I27.20 Pulmonary hypertension, unspecified; I48.91 Unspecified atrial fibrillation; N18.9 Chronic kidney disease, unspecified; Z51.5 Encounter for palliative care; Z66 Do not resuscitate; F03.90 Unspecified dementia, unspecified severity, without behavioral disturbance, psychotic disturbance, mood disturbance, and anxiety; R62.7 Adult failure to thrive; R13.10 Dysphagia, unspecified; B96.1 Klebsiella pneumoniae [K. pneumoniae] as the cause of diseases classified elsewhere; Z88.1 Allergy status to other antibiotic agents; Z88.2 Allergy status to sulfonamides; Z88.3 Allergy status to other anti-infective agents; R79.89 Other specified abnormal findings of blood chemistry
CPT/HCPCS: G0378; J2274; J7060